=== PATIENT | female | born 1940 | race Caucasian/White ===

== ENCOUNTER 2018-11-30 15:19 | Inpatient (IN) ==
[2018-11-30] MEDS ORDERED: IOPAMIDOL 100 ML BOTTLE IV ONE (15:20)
--- NOTE | 2018-11-30 15:45 | Emergency Department Note ---
SOB HPI - General Chief Complaint: Shortness of Breath/Dyspnea Stated Complaint: shortness of breath, increased Co2 levels Time Seen by Provider: 11/30/18 15:25 Source: patient, other Mode of arrival: wheelchair Limitations: no limitations - History of Present Illness 78 old female with a several day history of shortness of breath now requiring 2 L of oxygen. [facility] status post hip replacement. Her daughter thinks that she may have some sleep apnea that is contributing. She just finished a course of Levaquin [address] Glez got a blood gas on her in the venous blood gas showed a pH of 67 so he was concerned and sent her to the ER. Her family is concerned about undiagnosed sleep apnea - Related Data Home Medications Medication Instructions Recorded Confirmed cholecalciferol (vitamin D3) 1,000 1,000 unit PO QDAY 06/29/18 11/30/18 unit capsule diltiazem HCl 120 mg 60 mg PO QDAY 06/29/18 11/30/18 capsule,extended release 24 hr duloxetine 20 mg capsule,delayed 60 mg PO QDAY cap 06/29/18 11/30/18 release fluticasone propionate 50 1 spray INTRANASAL ONCE PRN g 06/29/18 11/30/18 mcg/actuation nasal spray,suspension magnesium oxide 400 mg (241.3 mg 400 mg PO QDAY tab 06/29/18 11/30/18 magnesium) tablet mesalamine 0.75 gm PO QAM 06/29/18 11/30/18 metformin 500 mg tablet 500 mg PO BID 06/29/18 11/30/18 nitroglycerin 0.4 mg sublingual 0.4 mg SUBLINGUAL Q5-15M PRN 06/29/18 11/30/18 tablet simvastatin 10 mg tablet 10 mg PO QHS 06/29/18 11/30/18 warfarin 5 mg tablet 5 mg PO QDAY 06/29/18 06/29/18 Allopurinol [Zyloprim] 200 mg PO DAILY 11/30/18 11/30/18 Amiodarone HCl [Cordarone] 200 mg PO DAILY 11/30/18 11/30/18 Aspirin [Adult Aspirin Regimen] 81 mg PO DAILY 11/30/18 11/30/18 Bumetanide 2 mg PO DAILY 11/30/18 11/30/18 Cyanocobalamin (Vitamin B-12) 500 mcg PO DAILY 11/30/18 11/30/18 [Vitamin B-12] Ferrous Fumarate [Hemocyte] 324 mg PO DAILY 11/30/18 11/30/18 Fluticasone/Salmeterol [Advair 1 puff INH BID 11/30/18 11/30/18 250-50 Diskus] Folic Acid 1 mg PO DAILY 11/30/18 11/30/18 Ipratropium/Albuterol [Duoneb] 3 ml NEB Q6HP PRN 11/30/18 11/30/18 Iron Fum/Vit C/B12-If/FA [Tricon 1 each PO BID 11/30/18 11/30/18 Capsule] Levothyroxine [Synthroid] 50 mcg PO DAILY 11/30/18 11/30/18 Ondansetron [Zofran ODT] 4 mg SL ACHS 11/30/18 11/30/18 Polyethylene Glycol 3350 [Miralax] 17 gm PO DAILY 11/30/18 11/30/18 Potassium Chloride [Klor-Con] 20 meq PO DAILY 11/30/18 11/30/18 Ranitidine HCl [Zantac] 150 mg PO BID 11/30/18 11/30/18 Rivaroxaban [Xarelto] 20 mg PO DAILY 11/30/18 11/30/18 traMADol HCL [Ultram] 50 mg PO Q6HP PRN 11/30/18 11/30/18 Allergies Allergy/AdvReac Type Severity Reaction Status Date / Time No Known Intolerances Allergy Unknown Verified 11/30/18 15:22 Review of Systems All systems ED: reviewed and negative except as stated. Past Medical History - Past Medical History Attestation: Yes: The following information was validated with the patient. [facility] Narrative: Family History (Last Updated 06/29/18 @ 14:19 by Jessica Chan) Other No pertinent family history Medical History (Last Updated 06/29/18 @ 13:37 by Jessica Chan) Vitamin deficiency, unspecified (Chronic) Allergy (Chronic) Irritable bowel syndrome with constipation (Chronic) Atrial fibrillation (Chronic) Major depressive disorder, single episode, unspecified (Chronic) Hyperuricemia without signs of inflammatory arthritis and tophaceous disease (Chronic) Type 2 diabetes mellitus without complications (Chronic) Hyperlipidemia (Chronic) Weakness (Chronic 06/09/18) Pain (Chronic) Need for assistance with personal care (Chronic) Lymphedema (Chronic) Obesity (Chronic) Muscle weakness (generalized) (Chronic) Other pulmonary embolism without acute cor pulmonale (Chronic) Temporal arteritis (Chronic) Past Surgical History (Last Updated 06/29/18 @ 14:19 by Jessica Chan) No pertinent past surgical history (Chronic) Medical history: Reports: atrial fibrillation, CHF, DM, hyperlipidemia, hypothyroidism, pulmonary embolus, other (Lymphedema, gout, B12) Surgical history ED: Reports: hip replacement - Social History smoking status: Never smoker Physical Exam Cephalic atraumatic. Conjunctive are clear sclera white anicteric. No nasal discharge or congestion. Oropharynx with dry buccal mucosa. Neck is supple without lymphadenopathy thyromegaly. Heart is regular rate and rhythm on auscultation. Holosystolic murmur 2 out of 6. Lungs are clear to auscultation bilaterally without wheezes rales rhonchi or respiratory distress. Wearing nasal cannula oxygen 2 L. Abdomen is soft nontender nondistended. Bloating. She does have +1-2 pitting edema bilaterally past her knees. She is alert oriented able to answer questions but is not clear if she is got some short-term memory deficit as her daughter is having to correct her multiple times. [facility] er she is inappropriately unconcerned about her health situation-we typically see this in the situation of dementia, " good indiffrence". Limitations: no limitations Course Vital Signs Temperature 97.6 F 11/30/18 15:19 Pulse Rate 86 11/30/18 15:19 Respiratory Rate 20 11/30/18 15:19 Blood Pressure 128/70 11/30/18 15:19 Pulse Oximetry (%) 94 11/30/18 15:19 Temperature 97.6 F 11/30/18 15:19 Pulse Rate 85 11/30/18 17:15 Respiratory Rate 16 11/30/18 17:15 Blood Pressure 135/67 11/30/18 17:15 Pulse Oximetry (%) 97 11/30/18 17:15 Shortness of Breath/Dyspnea - Lab Data Lab results reviewed: Yes I reviewed the patient's lab results. Result diagrams: 11/30/18 15:30 10/24/19 15:30 Lab Results 11/30/18 11/30/18 11/30/18 Range/Units 15:30 15:30 15:30 WBC 11.4 H (4.5-11.0) K/mcL RBC 3.76 L (4.00-5.20) M/mcL Hgb 10.0 L (12.0-15.0) g/dL Hct 31.0 L (36.0-48.0) % MCV 82.5 (80.0-100.0) fL MCH 26.6 (26.0-34.0) pg MCHC 32.2 (31.0-36.0) g/dL RDW 16.2 H (11.5-14.5) % Plt Count 496 H (140-440) K/mcL MPV 6.6 L (7.4-10.4) fL Total Counted 100 Seg Neutrophils % 69 (38-78) % Band Neutrophils % Not Reportable Lymphocytes % 16 (15-49) % Monocytes % (Manual) 12 (1-12) % Eosinophils % (Manual) 2 (0-7) % Basophils % (Manual) 1 (0-2) % Platelet Estimate Increased (NORMAL) RBC Morphology Normal (NORMAL) VBG Lactic Acid (0.5-2.0) mmol/L Sodium 137 (133-145) mmol/L Potassium 3.6 (3.3-5.1) mmol/L Chloride 91 L (96-108) mmol/L Carbon Dioxide 33 H (22-30) mmol/L Anion Gap 13.0 (8-16) BUN 17 (8-23) mg/dl Creatinine 1.1 (0.6-1.1) mg/dl GFR Calculation 48 Glucose 147 H (70-105) mg/dL Calcium 9.3 (8.6-10.4) mg/dl Total Bilirubin 0.4 (0.0-1.0) mg/dL AST 23 (0-37) U/l ALT 17 (0-40) U/l Alkaline Phosphatase 122 H (39-117) U/L Total Creatine Kinase 56 58 (24-170) IU/L CK-MB (CK-2) 2.5 (0-2.9) ng/ml Myoglobin 57 (25-58) ng/ml Troponin T (0-0.03) ng/ml NT-Pro-B Natriuret Pep (0-450) pg/ml Total Protein 6.9 (5.9-8.4) gm/dL Albumin 3.4 (3.2-5.2) gm/dL Globulin 3.5 (2.2-3.7) gm/dL Albumin/Globulin Ratio 1.0 (1.0-2.3) Procalcitonin (<0.10) ng/mL Urine Color Urine Appearance Urine pH (5.0-9.0) Ur Specific [place] (1.000-1.035) Urine Protein (NEG) mg/dL Urine Glucose (UA) (NEG) mg/dL Urine Ketones (NEG) mg/dL Urine Occult Blood (<0.03) mg/dL Urine Nitrate (NEG) Urine Bilirubin (NEG) mg/dL Urine Urobilinogen (NEG) mg/dL Ur Leukocyte Esterase (NEG) /uL Urine RBC (0-1) /hpf Urine WBC (0-4) /hpf Ur Squamous Epith Cells (0-4) /hpf Urine Bacteria (0) /hpf Hyaline Casts (0-2) /lpf Urine Mucus (0) /hpf Ur Culture Indicated? 11/30/18 11/30/18 11/30/18 Range/Units 15:30 16:17 16:17 WBC (4.5-11.0) K/mcL RBC (4.00-5.20) M/mcL Hgb (12.0-15.0) g/dL Hct (36.0-48.0) % MCV (80.0-100.0) fL MCH (26.0-34.0) pg MCHC (31.0-36.0) g/dL RDW (11.5-14.5) % Plt Count (140-440) K/mcL MPV (7.4-10.4) fL Total Counted Seg Neutrophils % (38-78) % Band Neutrophils % Lymphocytes % (15-49) % Monocytes % (Manual) (1-12) % Eosinophils % (Manual) (0-7) % Basophils % (Manual) (0-2) % Platelet Estimate (NORMAL) RBC Morphology (NORMAL) VBG Lactic Acid 1.5 (0.5-2.0) mmol/L Sodium (133-145) mmol/L Potassium (3.3-5.1) mmol/L Chloride (96-108) mmol/L Carbon Dioxide (22-30) mmol/L Anion Gap (8-16) BUN (8-23) mg/dl Creatinine (0.6-1.1) mg/dl GFR Calculation Glucose (70-105) mg/dL Calcium (8.6-10.4) mg/dl Total Bilirubin (0.0-1.0) mg/dL AST (0-37) U/l ALT (0-40) U/l Alkaline Phosphatase (39-117) U/L Total Creatine Kinase (24-170) IU/L CK-MB (CK-2) (0-2.9) ng/ml Myoglobin (25-58) ng/ml Troponin T 0.02 (0-0.03) ng/ml NT-Pro-B Natriuret Pep (0-450) pg/ml Total Protein (5.9-8.4) gm/dL Albumin (3.2-5.2) gm/dL Globulin (2.2-3.7) gm/dL Albumin/Globulin Ratio (1.0-2.3) Procalcitonin < 0.05 (<0.10) ng/mL Urine Color Urine Appearance Urine pH (5.0-9.0) Ur Specific [place] (1.000-1.035) Urine Protein (NEG) mg/dL Urine Glucose (UA) (NEG) mg/dL Urine Ketones (NEG) mg/dL Urine Occult Blood (<0.03) mg/dL Urine Nitrate (NEG) Urine Bilirubin (NEG) mg/dL Urine Urobilinogen (NEG) mg/dL Ur Leukocyte Esterase (NEG) /uL Urine RBC (0-1) /hpf Urine WBC (0-4) /hpf Ur Squamous Epith Cells (0-4) /hpf Urine Bacteria (0) /hpf Hyaline Casts (0-2) /lpf Urine Mucus (0) /hpf Ur Culture Indicated? 11/30/18 11/30/18 Range/Units 16:17 16:35 WBC (4.5-11.0) K/mcL RBC (4.00-5.20) M/mcL Hgb (12.0-15.0) g/dL Hct (36.0-48.0) % MCV (80.0-100.0) fL MCH (26.0-34.0) pg MCHC (31.0-36.0) g/dL RDW (11.5-14.5) % Plt Count (140-440) K/mcL MPV (7.4-10.4) fL Total Counted Seg Neutrophils % (38-78) % Band Neutrophils % Lymphocytes % (15-49) % Monocytes % (Manual) (1-12) % Eosinophils % (Manual) (0-7) % Basophils % (Manual) (0-2) % Platelet Estimate (NORMAL) RBC Morphology (NORMAL) VBG Lactic Acid (0.5-2.0) mmol/L Sodium (133-145) mmol/L Potassium (3.3-5.1) mmol/L Chloride (96-108) mmol/L Carbon Dioxide (22-30) mmol/L Anion Gap (8-16) BUN (8-23) mg/dl Creatinine (0.6-1.1) mg/dl GFR Calculation Glucose (70-105) mg/dL Calcium (8.6-10.4) mg/dl Total Bilirubin (0.0-1.0) mg/dL AST (0-37) U/l ALT (0-40) U/l Alkaline Phosphatase (39-117) U/L Total Creatine Kinase (24-170) IU/L CK-MB (CK-2) (0-2.9) ng/ml Myoglobin (25-58) ng/ml Troponin T (0-0.03) ng/ml NT-Pro-B Natriuret Pep 1914.0 H (0-450) pg/ml Total Protein (5.9-8.4) gm/dL Albumin (3.2-5.2) gm/dL Globulin (2.2-3.7) gm/dL Albumin/Globulin Ratio (1.0-2.3) Procalcitonin (<0.10) ng/mL Urine Color Yellow Urine Appearance Clear Urine pH 6.0 (5.0-9.0) Ur Specific [place] 1.012 (1.000-1.035) Urine Protein Neg (NEG) mg/dL Urine Glucose (UA) Negative (NEG) mg/dL Urine Ketones Neg (NEG) mg/dL Urine Occult Blood Neg (<0.03) mg/dL Urine Nitrate Neg (NEG) Urine Bilirubin Neg (NEG) mg/dL Urine Urobilinogen Neg (NEG) mg/dL Ur Leukocyte Esterase 75 A (NEG) /uL Urine RBC 0 (0-1) /hpf Urine WBC 28 H (0-4) /hpf Ur Squamous Epith Cells 1 (0-4) /hpf Urine Bacteria 0 (0) /hpf Hyaline Casts 34 H (0-2) /lpf Urine Mucus Few (0) /hpf Ur Culture Indicated? Yes Arterial blood gases a pH of 7.47 PCO2 49 PO2 of 57 - Radiology Data Radiology results reviewed: Yes I reviewed the patient's radiology results. Chest x-ray shows significant bibasilar pneumonia versus CHF, right worse than left - EKG Data EKG attestation: Yes I reviewed and interpreted this EKG., Yes There are no EKG findings of acute coronary syndrome, Yes This EKG will be read by sample shoe inspector and reworker EKG results narrative: EKG shows a rate of 85 sinus rhythm first-degree AV block incomplete right bundle branch block Disposition Pt seen by CERTIFIED SKI PATROLLER/PA only: No Clinical Impression: Pleural effusion Congestive heart failure Qualifiers: Heart failure type: unspecified Heart failure chronicity: acute on chronic Qualified Code(s): I50.9 - Heart failure, unspecified Respiratory failure with hypoxia and hypercapnia Qualifiers: Chronicity: acute Qualified Code(s): J96.01 - Acute respiratory failure with hypoxia; J96.02 - Acute respiratory failure with hypercapnia Summary: ABG shows significant hypoxia with mild hypercapnia. Chest x-ray shows bibasilar pneumonia Versus CHF. Blood cultures ordered and antibiotic started with Zosyn and vancomycin. Laboratory work-up start Laboratory consistent with CHF. Start Lasix [address] ordered [address] scan of the chest shows right-sided pleural effusion moderate to large-most consistent with CHF. Laboratory most consistent with CHF. Discussed with ho spitalist Dr. Kim who agreed to accept the patient for further care and evaluation in the ICU. Start BiPAP Disposition: Xfer As Inpt ([facility]) Condition: Fair Referrals: Wilfrid Carmona MD [Physician] -
[2018-11-30] MEDS ORDERED: PIPERACILLIN SODIUM/TAZOBACTAM 3.375 GM in DEXTROSE 5% IN WATER 50 ML IV ONE (15:55)
[2018-11-30] MEDS ORDERED: VANCOMYCIN 1,000 MG in 0.9 % SODIUM CHLORIDE 250 ML IV SCH (16:00)
--- NOTE | 2018-11-30 16:05 | XRay Report ---
INDICATION: Dyspnea TECHNIQUE: AP chest x-ray,portable semiupright COMPARISON: None FINDINGS:There is mild cardiomegaly. Pulmonary vascularity is prominent. There are bilateral parenchymal infiltrates with right basilar predominance. There are small effusions. Appearance is most consistent with congestive heart failure and pulmonary edema. Right basilar pneumonia is possible in the appropriate clinical circumstances. IMPRESSION: 1. Findings consistent with congestive heart failure and pulmonary edema 2. Right basilar infiltrate is probably pulmonary edema. Pneumonia is not excluded Interpreted and Authenticated by: Adal Maria 11/30/18
[2018-11-30 16:06] LABS: Mean Cell Volume 82.5 fL (80.0-100.0); Mean Corpuscular HGB Conc 32.2 g/dL (31.0-36.0); Mean Platelet Volume 6.6 fL (7.4-10.4); Platelet Count 496 K/mcL (140-440); RBC 3.76 M/mcL (4.00-5.20); Red Cell Distribution Width 16.2 % (11.5-14.5); WBC 11.4 K/mcL (4.5-11.0)
[2018-11-30 16:33] LABS: Basophils % (Manual) 1 % (0-2); Eosinophils % (Manual) 2 % (0-7); Lymphocytes % 16 % (15-49); Monocytes % (Manual) 12 % (1-12); Platelet Estimate INCREASED (NORMAL); RBC Morphology NORMAL (NORMAL); Segmented Neutrophils % 69 % (38-78)
[2018-11-30] MEDS ORDERED: FUROSEMIDE 100 MG/10 ML VIAL IV ONE (16:37)
[2018-11-30 16:40] LABS: ALT/SGPT 17 U/l (0-40); AST/SGOT 23 U/l (0-37); Albumin 3.4 gm/dL (3.2-5.2); Alkaline Phosphatase 122 U/L (39-117); Bilirubin,Total 0.4 mg/dL (0.0-1.0); Blood Urea Nitrogen 17 mg/dl (8-23); Calcium 9.3 mg/dl (8.6-10.4); Carbon Dioxide 33 mmol/L (22-30); Chloride 91 mmol/L (96-108); Creatine Kinase 56 IU/L (24-170); Creatine Kinase MB 2.5 ng/ml (0-2.9); Globulin 3.5 gm/dL (2.2-3.7); Glomerular Filtration Rate 48; Glucose 147 mg/dL (70-105); Myoglobin 57 ng/ml (25-58)
[2018-11-30 17:29] LABS: Appearance,Urine CLEAR; Bacteria,Urine 0 /hpf (0); Bilirubin,Urine NEG (NEG); Color,Urine YELLOW; Culture Indicated,Urine YES; Glucose,Urine (UA) NEGATIVE (NEG); Ketones,Urine NEG (NEG); Leukocyte Esterase,Urine 75 /uL (NEG); Mucus,Urine FEW /hpf (0); Nitrate,Urine NEG (NEG); Protein,Urine NEG (NEG); Specific Gravity,Urine 1.012 (1.000-1.035); Urine Blood NEG mg/dL (<0.03); Urine Hyaline Cast 34 /lpf (0-2); Urine RBC 0 /hpf (0-1); Urine Squamous Epithelial Cell 1 /hpf (0-4); Urine WBC 28 /hpf (0-4); Urobilinogen,Urine NEG (NEG)
--- NOTE | 2018-11-30 17:40 | Cat Scan Report ---
CLINICAL INFORMATION: Congestive heart failure. Dyspnea. TECHNIQUE: Axial postcontrast enhanced images through the chest. Sagittal and coronal reformatted images COMPARISON: Previous chest x-ray dated 11/30/2018 FINDINGS: Moderate right pleural effusion. Minimal left pleural effusion. Bilateral lower lobe infiltrate which is probably atelectasis. Pneumonia cannot be excluded based upon this appearance. Mid and upper lungs are negative. No parenchymal consolidation. Lungs are somewhat hazy bilaterally consistent with interstitial edema. There is four-chamber cardiomegaly. There is no pericardial fluid. Kiara and mediastinum are negative. No pathologic adenopathy. No axillary adenopathy. Thoracic aorta is negative. Upper abdomen is negative. Severe degenerative disc disease at C7-T1. Mild compression deformity of the T8 vertebral body. Appearance is consistent with benign compression fracture. IMPRESSION: 1. Moderate right pleural effusion. Probable interstitial edema consistent with congestive heart failure 2. Mild bilateral lower lobe pulmonary parenchymal density consistent with atelectasis 3. Cardiomegaly 4. T8 compression deformity, findings are consistent with benign compression fracture of indeterminate chronicity Interpreted and Authenticated by: Adal Maria 11/30/18
--- NOTE | 2018-11-30 18:28 | Internal Med History&Physical ---
Medical - H&P: HPI Patient information: Note initiated : 11/30/18 at 6:22 pm Service Date, if different from initiated Date: [] Patient: Dianne Benjamin a 78 y/o F admitted on for shortness of breath, increased Co2 levels. Chief Complaint: [] Chief complaint: SOB, weakness and hypoxic History of present illness: Ms. Benjamin is a 78 year old F with a complicated medical history including atrial flutter/pulmonary embolism currently on anticoagulation, COPD, CHF and diabetes. She follows up with [facility] office at [place]. She is in the process of transitioning to social secretary at [facility] to facilitate ablation for atrial flutter. She recently sustained hip fracture and underwent surgery at [place] by Dr. Severino. Patient was discharged to [facility] for postoperative recovery/rehab. She has been doing well until last few days she was noted by staff to be increasingly short of breath, weak and developed cough resulting in a gradual decline in functionality. She was recently diagnosed with pneumonia and completed a course of Levaquin 6 days ago. With above symptoms she was evaluated in the ER. Initial work-up was consistent with acute pulmonary edema/congestive heart failure on chest imaging. Urine showed pyuria. Patient was hypoxic requiring 2 L oxygen with blood gas 7.47/49/57. Patient was started on diuretics. Meraz's catheter placed with over 1200 cc urine output. Patient was initiated on noninvasive ventilation. Subsequently hospitalist service was consulted for admission in light of hypoxic respiratory failure UTI and deconditioning. She is accompanied with her daughter and son-in-law. They were able to answer most the question. Per daughter she has demonstrated a gradual cognitive decline over the last few months. During my evaluation patient is alert and respond to commands. She appears dyspneic and unable to talk in full sentences. She denies abdominal pain but endorses distention. She endorses to lower extremity swelling and weight gain. She denies chest pain headache fever or cough. She denies changes in medication or NSAID intake. She further denies known sick contacts. 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 inflammatory arthritis and tophaceous disease (Chronic) Type 2 diabetes mellitus without complications (Chronic) Hyperlipidemia (Chronic) Weakness (Chronic 06/09/18) Pain (Chronic) Need for assistance with personal care (Chronic) Lymphedema (Chronic) Obesity (Chronic) Muscle weakness (generalized) (Chronic) Other pulmonary embolism without acute cor pulmonale (Chronic) Temporal arteritis (Chronic) History of congestive heart failure Past Surgical History Reports: hip replacement October 24, 2018 - Social History smoking status: Never smoker No history of alcoholism Currently at [facility] recovering from recent hip surgery Medical - H&P: Meds Home Medications Medication Instructions Recorded Confirmed Type cholecalciferol (vitamin D3) 1,000 1,000 unit PO QDAY 06/29/18 11/30/18 History unit capsule diltiazem HCl 120 mg 60 mg PO QDAY 06/29/18 11/30/18 History capsule,extended release 24 hr duloxetine 20 mg capsule,delayed 60 mg PO QDAY cap 06/29/18 11/30/18 History release fluticasone propionate 50 1 spray INTRANASAL ONCE PRN g 06/29/18 11/30/18 History mcg/actuation nasal spray,suspension magnesium oxide 400 mg (241.3 mg 400 mg PO QDAY tab 06/29/18 11/30/18 History magnesium) tablet mesalamine 0.75 gm PO QAM 06/29/18 11/30/18 History metformin 500 mg tablet 500 mg PO BID 06/29/18 11/30/18 History nitroglycerin 0.4 mg sublingual 0.4 mg SUBLINGUAL Q5-15M PRN 06/29/18 11/30/18 History tablet simvastatin 10 mg tablet 10 mg PO QHS 06/29/18 11/30/18 History warfarin 5 mg tablet 5 mg PO QDAY 06/29/18 06/29/18 History Allopurinol [Zyloprim] 200 mg PO DAILY 11/30/18 11/30/18 History Amiodarone HCl [Cordarone] 200 mg PO DAILY 11/30/18 11/30/18 History Aspirin [Adult Aspirin Regimen] 81 mg PO DAILY 11/30/18 11/30/18 History Bumetanide 2 mg PO DAILY 11/30/18 11/30/18 History Cyanocobalamin (Vitamin B-12) 500 mcg PO DAILY 11/30/18 11/30/18 History [Vitamin B-12] Ferrous Fumarate [Hemocyte] 324 mg PO DAILY 11/30/18 11/30/18 History Fluticasone/Salmeterol [Advair 1 puff INH BID 11/30/18 11/30/18 History 250-50 Diskus] Folic Acid 1 mg PO DAILY 11/30/18 11/30/18 History Ipratropium/Albuterol [Duoneb] 3 ml NEB Q6HP PRN 11/30/18 11/30/18 History Iron Fum/Vit C/B12-If/FA [Tricon 1 each PO BID 11/30/18 11/30/18 History Capsule] Levothyroxine [Synthroid] 50 mcg PO DAILY 11/30/18 11/30/18 History Ondansetron [Zofran ODT] 4 mg SL ACHS 11/30/18 11/30/18 History Polyethylene Glycol 3350 [Miralax] 17 gm PO DAILY 11/30/18 11/30/18 History Potassium Chloride [Klor-Con] 20 meq PO DAILY 11/30/18 11/30/18 History Ranitidine HCl [Zantac] 150 mg PO BID 11/30/18 11/30/18 History Rivaroxaban [Xarelto] 20 mg PO DAILY 11/30/18 11/30/18 History traMADol HCL [Ultram] 50 mg PO Q6HP PRN 11/30/18 11/30/18 History Allergies Allergy/AdvReac Type Severity Reaction Status Date / Time No Known Intolerances Allergy Unknown Verified 11/30/18 15:22 Medical - H&P: Exam - Constitutional Vitals: Temp Pulse Resp BP Pulse Ox 97.6 F 85 16 135/67 97 11/30/18 15:19 11/30/18 17:15 11/30/18 17:15 11/30/18 17:15 11/30/18 17:15 Medical - H&P: Reslt - Labs CBC & Chem 7: 11/30/18 15:30 11/30/18 15:30 Labs: Short CBC 11/30/18 Range/Units 15:30 WBC 11.4 H (4.5-11.0) K/mcL Hgb 10.0 L (12.0-15.0) g/dL Hct 31.0 L (36.0-48.0) % Plt Count 496 H (140-440) K/mcL BMP 11/30/18 15:30 Sodium 137 Potassium 3.6 Chloride 91 L Carbon Dioxide 33 H BUN 17 Creatinine 1.1 Glucose 147 H Calcium 9.3 Cardiac Enzymes 11/30/18 11/30/18 11/30/18 Range/Units 15:30 15:30 15:30 Total Creatine Kinase 56 58 (24-170) IU/L CK-MB (CK-2) 2.5 (0-2.9) ng/ml Troponin T 0.02 (0-0.03) ng/ml Liver Function 11/30/18 Range/Units 15:30 Total Bilirubin 0.4 (0.0-1.0) mg/dL AST 23 (0-37) U/l ALT 17 (0-40) U/l Alkaline Phosphatase 122 H (39-117) U/L Albumin 3.4 (3.2-5.2) gm/dL Urine 11/30/18 Range/Units 16:35 Urine Color Yellow Urine Appearance Clear Urine pH 6.0 (5.0-9.0) Ur Specific [place] 1.012 (1.000-1.035) Urine Protein Neg (NEG) mg/dL Urine Glucose (UA) Negative (NEG) mg/dL Medical - H&P: A/P (1) Heart failure, chronic, with acute decompensation Current visit: Yes Status: Acute * Acute decompensated heart failure. As evident on chest imaging. Type unclear. Obtain prior medical records. Check echocardiogram. Start aggressive diuresis/optimize CHF management based on echo finding. Start noninvasive ventilation in light of increased work of breathing/severe hypoxia and pulmonary edema. * Acute pulmonary edema-second above. Continue aggressive diuresis/noninvasive ventilation. * Acute respiratory failure with hypoxia and hypercapnia. Secondary to pulmonary edema/CHF, ABG 7.47/40 9/57 on 2 L oxygen. Large AA gradient. Continue supplemental oxygen * Complicated UTI-on antibiotic coverage. De-escalate based on sensitivities * Pleural effusion secondary to congestive heart failure. Thoracentesis if no improvement despite diuresis in the next 24 to 48 hours. * History paroxysmal atrial fibrillation currently in sinus. On amiodarone/digoxin/rivaroxaban for CVA prophylaxis * History of COPD-continue bronchodilators/noninvasive ventilation/submental oxygen. * History of coronary disease continue aspirin/statin/anticoagulation/nitroglycerin * History of hypothyroidism continue thyroxine * DM type II continue basal prandial insulin/CC diet/sitagliptin * GERD continue H2 antagonist * Degenerative disease continue tramadol * History of gout continue allopurinol * Full code * Prophylaxis currently on anticoagulation Plan * Inpatient ICU admission * Noninvasive ventilation * Serial chest imaging/blood gas * Aggressive diuresis * Echocardiogram * Thoracentesis if no improvement with diuresis indicated * Antibiotic coverage and de-escalate based on cultures * Aggressive PT OT/nutrition support/case management rehab consult Time spent on history and physical in excess of 70 minutes. Additional 35 minutes critical time spent on management of hypoxic respite failure/pulmonary edema/imaging intubation of ABG/imaging discussion with physician
[2018-11-30] MEDS ORDERED: MAGNESIUM SULFATE 2 GM/50 ML BAG IV PRN (19:25)
[2018-11-30] MEDS ORDERED: NITROGLYCERIN 0.4 MG TAB.SUBL SL PRN (19:25)
[2018-11-30] MEDS ORDERED: ONDANSETRON 4 MG/2 ML VIAL IV PRN (19:25)
[2018-11-30] MEDS ORDERED: ACETAMINOPHEN 325 MG TABLET PO PRN (19:25)
[2018-11-30] MEDS ORDERED: ACETAMINOPHEN 650 MG/65 ML BOTTLE IV PRN (19:25)
[2018-11-30] MEDS ORDERED: DEXTROSE 31 GM ORAL.SUSP PO PRN (19:25)
[2018-11-30] MEDS ORDERED: DEXTROSE 50% 50 ML VIAL IV PRN (19:25)
[2018-11-30] MEDS ORDERED: POTASSIUM CHLORIDE 20 MEQ PACKET PO PRN (19:25)
[2018-11-30] MEDS ORDERED: hydrALAZINE 20 MG/ML VIAL IV PRN (19:25)
[2018-11-30] MEDS ORDERED: traMADol 50 MG TABLET PO PRN (19:25)
[2018-11-30] MEDS ORDERED: cefTRIAXone 2 GM VIAL ONE (20:57)
[2018-11-30] MEDS ORDERED: IRON FUM PO SCH (21:00)
[2018-11-30] MEDS ORDERED: VIT C PO SCH (21:00)
[2018-11-30] MEDS ORDERED: [UNRECOGNIZED DRUG - OTHER] PO SCH (21:00)
[2018-11-30] MEDS ORDERED: MELATONIN 3 MG TABLET PO PRN (21:00)
[2018-11-30] MEDS: BUDESONIDE 0.5 MG/2 ML AMPUL.NEB NEB SCH (21:09)
[2018-11-30] MEDS: SENNOSIDES/DOCUSATE SODIUM 1 TAB TABLET PO SCH (21:12)
[2018-11-30] MEDS: FAMOTIDINE 20 MG TABLET PO SCH (21:12)
[2018-11-30] MEDS: SIMVASTATIN 10 MG TABLET PO SCH (21:12)
[2018-11-30] MEDS: DOCUSATE SODIUM 100 MG CAPSULE PO SCH (21:12)
[2018-11-30] MEDS: CYANOCOBALAMIN (VITAMIN B-12) 500 MCG TABLET PO SCH (21:12)
[2018-11-30] MEDS: IPRATROPIUM/ALBUTEROL 3 ML AMPUL.NEB NEB SCH ×2 (21:12→21:43)
[2018-11-30] MEDS: METOPROLOL TARTRATE 5 MG/5 ML VIAL IV SCH ×3 (21:13→22:06)
[2018-11-30] MEDS: cefTRIAXone 2 GM in DEXTROSE 5% IN WATER 50 ML IV SCH (21:13)
[2018-11-30] MEDS ORDERED: FUROSEMIDE 40 MG/4 ML VIAL IV SCH (22:00)
[2018-11-30] MEDS: INSULIN LISPRO 1 UNIT/0.01 ML UNIT SQ SCH (22:24)
[2018-12-01] MEDS: 0.9 % SODIUM CHLORIDE 10 ML SYRINGE IV SCH ×4 (03:29→21:41)
[2018-12-01] MEDS: IPRATROPIUM/ALBUTEROL 3 ML AMPUL.NEB NEB SCH ×6 (03:30→22:54)
[2018-12-01 05:32] LABS: Hemoglobin 9.1 g/dL (12.0-15.0); Mean Cell Volume 82.8 fL (80.0-100.0); Mean Corpuscular HGB Conc 32.6 g/dL (31.0-36.0); Mean Platelet Volume 6.8 fL (7.4-10.4); Platelet Count 411 K/mcL (140-440); RBC 3.38 M/mcL (4.00-5.20); Red Cell Distribution Width 15.7 % (11.5-14.5); WBC 8.9 K/mcL (4.5-11.0)
--- NOTE | 2018-12-01 05:47 | Internal Med Progress Note ---
Medical - PN: Subj Patient information: Note initiated : 12/01/18 at 5:45 am Service Date, if different from initiated Date: [] Patient: Dianne Benjamin a 78 y/o F admitted on 11/30/18 for shortness of breath, increased Co2 levels. Chief Complaint: [] Interval history: Ms. Benjamin is a 78 year old F with a complicated medical history including atrial flutter/pulmonary embolism currently on anticoagulation, COPD, CHF and diabetes. She follows up with [facility] office at [place]. 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 She recently sustained hip fracture and underwent surgery at [facility] by Dr. Severino. Patient was discharged to [facility] for postoperative recovery/rehab. She has been doing well until last few days she was noted by staff to be increasingly short of breath, weak and developed cough resulting in a gradual decline in functionality. She was recently diagnosed with pneumonia and completed a course of Levaquin 6 days ago. With above symptoms she was evaluated in the ER. Initial work-up was consistent with acute pulmonary edema/congestive heart failure on chest imaging. Urine showed pyuria. Patient was hypoxic requiring 2 L oxygen with blood gas 7.47/49/57. Patient was started on diuretics. Meraz's catheter placed with over 1200 cc urine output. Patient was initiated on noninvasive ventilation. Subsequently hospitalist service was consulted for admission in light of hypoxic respiratory failure UTI and deconditioning. She is accompanied with her daughter and son-in-law. They were able to answer most the question. Per daughter she has demonstrated a gradual cognitive decline over the last few months. During my evaluation patient is alert and respond to commands. She appears dyspneic and unable to talk in full sentences. She denies abdominal pain but endorses distention. She endorses to lower extremity swelling and weight gain. She denies chest pain headache fever or cough. She denies changes in medication or NSAID intake. She further denies known sick contacts. 12/01-patient kept overnight on noninvasive ventilation. Repeat ABG 7.5 on 30% FiO2. Diuresing well with over 3000 cc net negative. Improved pulmonary edema/hypoxia with PO2 improving from 57-93. Persistent hypercapnia likely CO2 retainer with Woodruff corrected PCO2 ~56. Check interval x-ray. Hemoglobin down to 9.1. White count down to 8.9. Potassium down to 2.9. Echocardiogram pending. No overnight telemetry events. Continue current treatment as above. - Constitutional Vitals: Vital Signs Temp Pulse Resp BP Pulse Ox 98.3 F 87 17 127/64 100 12/01/18 03:48 12/01/18 04:01 12/01/18 04:01 12/01/18 04:01 12/01/18 04:01 Period Temp Pulse Resp BP Sys/Seals Pulse Ox Last 24 Hr 97.6 F-98.8 F 52-89 12-99 100-151/59-88 84-100 Intake and Output 11/30/18 11/30/18 12/01/18 13:59 21:59 05:59 Intake Total 300 50 Output Total 2300 850 Balance -2000 -800 Weight 232 lb Patient Weight 12/01/18 05:59 Weight 232 lb Intake & Output: Intake & Output 11/30/18 11/30/18 12/01/18 13:59 21:59 05:59 Intake Total 300 50 Output Total 2300 850 Balance -2000 -800 Weight 232 lb Intake: IV 300 50 Zosyn 3.375 gm In Dextrose 5% 50 in Water 50 ml @ 100 mls/hr IV ONCE ONE Rx#:[id number] Vancomycin 1,000 mg In Sodium 250 Chloride 0.9% 250 ml @ 250 mls/ hr IV Q12H [facility] Rx#:[id number] Rocephin 2 gm In Dextrose 5% in 50 Water 50 ml @ 100 mls/hr IV DAILY [facility] Rx#:[id number] Output: Urine Catheter Amount 2300 850 Other: Urine Appearance Clear Cloudy Sediment Small Blood Clots Urine Color Pale Pale General appearance: no acute distress Exam: On noninvasive ventilation Meraz draining clear urine Improving lymphedema Diminished breath sounds bases but improved since previous day No telemetry events Medical - PN: Obj Da - Labs CBC & Chem 7: 12/01/18 03:13 12/01/18 03:13 Labs: Abnormal Lab Results 12/01/18 11/30/18 11/30/18 03:13 16:35 16:17 WBC RBC 3.38 L Hgb 9.1 L Hct 28.0 L RDW 15.7 H Plt Count MPV 6.8 L Chloride Carbon Dioxide Glucose Alkaline Phosphatase NT-Pro-B Natriuret Pep 1914.0 H Ur Leukocyte Esterase 75 A Urine WBC 28 H Hyaline Casts 34 H 11/30/18 11/30/18 15:30 15:30 WBC 11.4 H RBC 3.76 L Hgb 10.0 L Hct 31.0 L RDW 16.2 H Plt Count 496 H MPV 6.6 L Chloride 91 L Carbon Dioxide 33 H Glucose 147 H Alkaline Phosphatase 122 H NT-Pro-B Natriuret Pep Ur Leukocyte Esterase Urine WBC Hyaline Casts Meds: Medications Acetaminophen (Tylenol) 650 mg PO Q4-6HP PRN; Protocol PRN Reason: Per Pain Protocol/Fever > 101 Albuterol/Ipratropium (Duoneb) 3 ml NEB Q4HRT [facility] Last Admin: 12/01/18 03:30 Dose: 3 ml Documented by: Allopurinol (Zyloprim) 200 mg PO DAILY [facility] Amiodarone HCl (Cordarone) 200 mg PO DAILY [facility] Aspirin (Aspirin) 81 mg PO DAILY [facility] Budesonide (Pulmicort) 0.5 mg NEB Q12 [facility] Last Admin: 11/30/18 21:09 Dose: 0.5 mg Documented by: Cyanocobalamin (Vitamin B-12) 1,000 mcg PO BID [facility] Stop: 12/05/18 09:01 Last Admin: 11/30/18 21:12 Dose: 1,000 mcg Documented by: Dextrose (Dextrose 50%) 0 ml IV UD PRN PRN Reason: Hypoglycemia Diagnostic Test (Pha) (Accu-Chek) 1 each FS ACHS [facility] Last Admin: 11/30/18 21:12 Dose: 1 each Documented by: Diltiazem HCl (Cardizem Cd) 60 mg PO QDAY [facility] Docusate Sodium (Colace) 100 mg PO BID [facility] Last Admin: 11/30/18 21:12 Dose: 100 mg Documented by: Duloxetine HCl (Cymbalta) 60 mg PO DAILY [facility] Famotidine (Pepcid) 20 mg PO BID [facility] Last Admin: 11/30/18 21:12 Dose: 20 mg Documented by: Folic Acid (Folic Acid) 1 mg PO DAILY [facility] Furosemide (Lasix) 40 mg IV BIDD [facility] Glucose (Insta-Glucose) 15 gm PO PRN PRN PRN Reason: Hypoglycemia Hydralazine HCl (Apresoline) 10 mg IV Q4-6HP PRN PRN Reason: Hypertension Acetaminophen (Ofirmev) 650 mg in 65 mls @ 130 mls/hr IV Q6HP PRN; Protocol PRN Reason: Per Pain Protocol/Fever > 101 Magnesium Sulfate (Magnesium Sulfate) 2 gm in 50 mls @ 50 mls/hr IV UD PRN PRN Reason: MG = or < 1.7 Ceftriaxone Sodium 2 gm/ (Dextrose) 50 mls @ 100 mls/hr IV DAILY [facility]; Protocol Last Infusion: 12/01/18 03:27 Dose: Infused Documented by: Insulin Human Lispro (Humalog) 0 unit SQ ACHS [facility]; Protocol Last Admin: 11/30/18 22:24 Dose: Not Given Documented by: Iron Carb/Multivit/Practical Nursing Teacher/Folic Acid (Multivitamin W/Minerals) 1 tab PO DAILY [facility] Levothyroxine Sodium (Synthroid) 50 mcg PO ACB [facility] Magnesium Oxide (Magnesium Oxide) 400 mg PO QDAY [facility] Melatonin (Melatonin 3mg Tablet) 3 mg PO HSP PRN PRN Reason: Insomnia Nitroglycerin (Nitrostat) 0.4 mg SL Q5MINP PRN PRN Reason: Chest Pain Non-Formulary Medication (Ferrous Fumarate [Hemocyte]) 324 mg PO DAILY [facility] Non-Formulary Medication (Iron Fum/Vit C/B12-If/Fa [Tricon Capsule]) 1 each PO BID [facility] Last Admin: 11/30/18 22:25 Dose: Not Given Documented by: Non-Formulary Medication (Mesalamine) 0.75 gm PO QAM [facility] Ondansetron HCl (Zofran) 4 mg IV Q4-6HP PRN; Protocol PRN Reason: Nausea And Vomiting Potassium Chloride (Klor-Con) 40 meq PO DAILYP PRN PRN Reason: K+ < 3.5 Potassium Chloride (Klor-Con) 20 meq PO QAMCC [facility] Rivaroxaban (Xarelto) 20 mg PO QPMCC [facility] Senna/Docusate Sodium (Senna Plus Tablet) 1 tab PO HS [facility] Last Admin: 11/30/18 21:12 Dose: 1 tab Documented by: Simvastatin (Zocor) 10 mg PO QHS [facility] Last Admin: 11/30/18 21:12 Dose: 10 mg Documented by: Sitagliptin Phosphate (Januvia) 100 mg PO DAILY [facility] Sodium Chloride (Saline Flush) 10 ml IV Q8 [facility] Last Admin: 12/01/18 03:29 Dose: Not Given Documented by: Thiamine HCl (Vitamin B1) 100 mg PO DAILY [facility] Tramadol HCl (Ultram) 50 mg PO Q6HP PRN PRN Reason: Pain Medical - PN: A/P - Time Spent With Patient Total time spent is greater than 50% in coordination of care (as documented) at patient's floor/unit and/or counseling patient: Greater than 35 minutes (Critical care time) (1) Heart failure, chronic, with acute decompensation Status: Acute Assessment and plan: * Acute decompensated heart failure. Noted on chest imaging with pulmonary edema. Echo pending. clinically improving with aggressive diuresis. Continue noninvasive ventilation. Await outpatient records * Acute pulmonary edema-secondary to above. Clinically improving with aggressive diuresis. * Acute respiratory failure with hypoxia and hypercapnia. Secondary to pulmonary edema, repeat ABG 7.51/51/93 on 2 L oxygen. Improved AA gradient. * Complicated UTI-continue antibiotic coverage and de-escalate based on sensitivities * Hypokalemia 2.9. Start oral and IV replacement. * Pleural effusion secondary to congestive heart failure. Consider thoracente sis if no improvement despite diuresis in the next 24 to 48 hours. * History paroxysmal atrial fibrillation currently in sinus. On amiodarone/digoxin/rivaroxaban for CVA prophylaxis, follows up with [facility] at [place] * History of COPD with chronic CO2 retention, woodruff corrected PCO2 56. continue bronchodilators/noninvasive ventilation. * History of CAD continue aspirin/statin/anticoagulation/nitroglycerin. Follows up with [facility] * History of hypothyroidism continue thyroxine * DM type II continue basal prandial insulin/CC diet/sitagliptin * GERD continue H2 antagonist * Degenerative disease continue tramadol * History of gout continue allopurinol * Full code * Prophylaxis currently on rivaroxaban Plan * Wean noninvasive ventilation as tolerated * Continue serial chest imaging/blood gas * Obtain records from [facility] cardiology office, * Await echocardiogram, optimize CHF management based on echo findings * Continue aggressive diuresis * Replace 100 meq potassium(20 IV +80 p.o.) * Consider thoracentesis if no improvement with diuresis on repeat chest imaging * Antibiotic coverage and de-escalate based on cultures * Continue PT OT/nutrition support/case management rehab consult Current Visit: Yes
[2018-12-01 05:51] LABS: ALT/SGPT 13 U/l (0-40); AST/SGOT 20 U/l (0-37); Albumin 2.8 gm/dL (3.2-5.2); Albumin/Globulin Ratio 0.8 (1.0-2.3); Alkaline Phosphatase 101 U/L (39-117); Bilirubin,Direct < 0.2 mg/dL (0.0-0.3); Bilirubin,Total 0.4 mg/dL (0.0-1.0); Blood Urea Nitrogen 13 mg/dl (8-23); Carbon Dioxide 32 mmol/L (22-30); Chloride 92 mmol/L (96-108); Globulin 3.3 gm/dL (2.2-3.7); Glomerular Filtration Rate 62; Glucose 104 mg/dL (70-105); Lactate Dehydrogenase 196 U/L (94-250); Phosphorous 3.1 mg/dL (2.7-4.5); Triglycerides 54 mg/dl (<150); Uric Acid 3.8 mg/dL (2.5-8.0)
[2018-12-01] MEDS: POTASSIUM CHLORIDE 20 MEQ/15 ML ML PO SCH ×2 (06:12→12:13)
--- NOTE | 2018-12-01 06:45 | XRay Report ---
INDICATION: Hypoxia, dyspnea TECHNIQUE: AP chest x-ray,portable semiupright COMPARISON: Previous examination dated 11/30/2018 FINDINGS:Pulmonary vascularity remains prominent. Right basilar parenchymal infiltrate is essentially unchanged. There is pleural fluid, right greater than left. Overall appearance remains consistent with congestive heart failure although right basilar pneumonia is possible. Radiographic appearance is essentially unchanged IMPRESSION: No significant interval change since 11/30/2018 Interpreted and Authenticated by: Adal Maria 12/01/18
[2018-12-01 07:28] LABS: Band Neutrophils % 1 % (0-10); Eosinophils % (Manual) 1 % (0-7); Hypochromasia 1+ (NONE SEEN); Lymphocytes % 7 % (15-49); Monocytes % (Manual) 16 % (1-12); Platelet Estimate NORMAL (NORMAL); Polychromasia FEW (NONE SEEN); RBC Morphology ABNORM (NORMAL); Segmented Neutrophils % 75 % (38-78)
[2018-12-01] MEDS: BUDESONIDE 0.5 MG/2 ML AMPUL.NEB NEB SCH ×2 (07:35→19:13)
[2018-12-01] MEDS: INSULIN LISPRO 1 UNIT/0.01 ML UNIT SQ SCH ×4 (09:26→21:53)
[2018-12-01] MEDS: FUROSEMIDE 40 MG/4 ML VIAL IV SCH ×2 (09:45→16:50)
--- NOTE | 2018-12-01 10:38 | Internal Med Progress Note ---
Medical - PN: Subj Patient information: Note initiated : 12/01/18 at 10:37 am Service Date, if different from initiated Date: [] Patient: Dianne Benjamin a 78 y/o F admitted on 11/30/18 for shortness of breath, increased Co2 levels. Chief Complaint: [] Interval history: Ms. Benjamin is a 78 year old F with a complicated medical history including atrial flutter/pulmonary embolism currently on anticoagulation, COPD, CHF and diabetes. She follows up with [facility] at [place]. 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 She recently sustained hip fracture and underwent surgery at [facility] by Dr. Severino. Patient was discharged to [facility] for postoperative recovery/rehab. She has been doing well until last few days she was noted by staff to be increasingly short of breath, weak and developed cough resulting in a gradual decline in functionality. She was recently diagnosed with pneumonia and completed a course of Levaquin 6 days ago. With above symptoms she was evaluated in the ER. Initial work-up was consistent with acute pulmonary edema/congestive heart failure on chest imaging. Urine showed pyuria. Patient was hypoxic requiring 2 L oxygen with blood gas 7.47/49/57. Patient was started on diuretics. Meraz's catheter placed with over 1200 cc urine output. Patient was initiated on noninvasive ventilation. Subsequently hospitalist service was consulted for admission in light of hypoxic respiratory failure UTI and deconditioning. She is accompanied with her daughter and son-in-law. They were able to answer most the question. Per daughter she has demonstrated a gradual cognitive decline over the last few months. During my evaluation patient is alert and respond to commands. She appears dyspneic and unable to talk in full sentences. She denies abdominal pain but endorses distention. She endorses to lower extremity swelling and weight gain. She denies chest pain headache fever or cough. She denies changes in medication or NSAID intake. She further denies known sick contacts. 12/01-patient kept overnight on noninvasive ventilation. Repeat ABG 7.5 on 30% FiO2. Diuresing well with over 3000 cc net negative. Improved pulmonary edema/hypoxia with PO2 improving from 57-93. Persistent hypercapnia likely CO2 retainer with Woodruff corrected PCO2 ~56. Check interval x-ray. Hemoglobin down to 9.1. White count down to 8.9. Potassium down to 2.9. Echocardiogram pending. No overnight telemetry events. Continue current treatment as above. - Constitutional Vitals: Vital Signs Temp Pulse Resp BP Pulse Ox 98.1 F 88 23 H 122/65 97 12/01/18 08:01 12/01/18 08:01 12/01/18 10:01 12/01/18 10:01 12/01/18 10:01 Period Temp Pulse Resp BP Sys/Seals Pulse Ox Last 24 Hr 97.6 F-98.8 F 52-90 12-99 100-151/59-88 84-100 Intake and Output 11/30/18 12/01/18 12/01/18 21:59 05:59 13:59 Intake Total 300 50 Output Total 2300 850 Balance -2000 -800 Weight 105.233 kg Intake & Output: Intake & Output 11/30/18 12/01/18 12/01/18 21:59 05:59 13:59 Intake Total 300 50 Output Total 2300 850 Balance -2000 -800 Weight 105.233 kg Intake: IV 300 50 Zosyn 3.375 gm In Dextrose 5% 50 in Water 50 ml @ 100 mls/hr IV ONCE ONE Rx#:[id number] Vancomycin 1,000 mg In Sodium 250 Chloride 0.9% 250 ml @ 250 mls/ hr IV Q12H [facility] Rx#:[id number] Rocephin 2 gm In Dextrose 5% in 50 Water 50 ml @ 100 mls/hr IV DAILY [facility] Rx#:[id number] Output: Urine Catheter Amount 2300 850 Other: Urine Appearance Clear Cloudy Sediment Small Blood Clots Urine Color Pale Pale Exam: General: Alert, Awake, No acute Distress Eyes/N/T: EOMI, Head/Neck: neck supple, CV: RRR, No murmurs, Pulm: Abd: soft, nontender, +BS x4 Ext: no clubbing/cyanosis b/l LE edema Neuro: Alert, no focal deficits, moves all extremities, Skin: warm/dry Medical - PN: Obj Da - Labs CBC & Chem 7: 12/01/18 03:13 12/01/18 03:13 Labs: Abnormal Lab Results 12/01/18 12/01/18 11/30/18 03:13 03:13 16:35 WBC RBC 3.38 L Hgb 9.1 L Hct 28.0 L RDW 15.7 H Plt Count MPV 6.8 L Lymphocytes % 7 L Monocytes % (Manual) 16 H RBC Morphology Abnorm A Polychromasia Few A Hypochromasia 1+ A Potassium 2.9 L* Chloride 92 L Carbon Dioxide 32 H Glucose Alkaline Phosphatase NT-Pro-B Natriuret Pep Albumin 2.8 L Albumin/Globulin Ratio 0.8 L Ur Leukocyte Esterase 75 A Urine WBC 28 H Hyaline Casts 34 H 11/30/18 11/30/18 11/30/18 16:17 15:30 15:30 WBC 11.4 H RBC 3.76 L Hgb 10.0 L Hct 31.0 L RDW 16.2 H Plt Count 496 H MPV 6.6 L Lymphocytes % Monocytes % (Manual) RBC Morphology Polychromasia Hypochromasia Potassium Chloride 91 L Carbon Dioxide 33 H Glucose 147 H Alkaline Phosphatase 122 H NT-Pro-B Natriuret Pep 1914.0 H Albumin Albumin/Globulin Ratio Ur Leukocyte Esterase Urine WBC Hyaline Casts Meds: Medications Acetaminophen (Tylenol) 650 mg PO Q4-6HP PRN; Protocol PRN Reason: Per Pain Protocol/Fever > 101 Albuterol/Ipratropium (Duoneb) 3 ml NEB Q4HRT [facility] Last Admin: 12/01/18 06:51 Dose: 3 ml Documented by: Allopurinol (Zyloprim) 200 mg PO DAILY [facility] Amiodarone HCl (Cordarone) 200 mg PO DAILY [facility] Aspirin (Aspirin) 81 mg PO DAILY [facility] Budesonide (Pulmicort) 0.5 mg NEB Q12 [facility] Last Admin: 12/01/18 07:35 Dose: 0.5 mg Documented by: Cyanocobalamin (Vitamin B-12) 1,000 mcg PO BID [facility] Stop: 12/05/18 09:01 Last Admin: 11/30/18 21:12 Dose: 1,000 mcg Documented by: Dextrose (Dextrose 50%) 0 ml IV UD PRN PRN Reason: Hypoglycemia Diagnostic Test (Pha) (Accu-Chek) 1 each FS ACHS [facility] Last Admin: 12/01/18 09:25 Dose: 1 each Documented by: Docusate Sodium (Colace) 100 mg PO BID [facility] Last Admin: 11/30/18 21:12 Dose: 100 mg Documented by: Duloxetine HCl (Cymbalta) 60 mg PO DAILY [facility] Famotidine (Pepcid) 20 mg PO BID [facility] Last Admin: 11/30/18 21:12 Dose: 20 mg Documented by: Folic Acid (Folic Acid) 1 mg PO DAILY [facility] Furosemide (Lasix) 40 mg IV BIDD [facility] Last Admin: 12/01/18 09:45 Dose: 40 mg Documented by: Glucose (Insta-Glucose) 15 gm PO PRN PRN PRN Reason: Hypoglycemia Hydralazine HCl (Apresoline) 10 mg IV Q4-6HP PRN PRN Reason: Hypertension Acetaminophen (Ofirmev) 650 mg in 65 mls @ 130 mls/hr IV Q6HP PRN; Protocol PRN Reason: Per Pain Protocol/Fever > 101 Magnesium Sulfate (Magnesium Sulfate) 2 gm in 50 mls @ 50 mls/hr IV UD PRN PRN Reason: MG = or < 1.7 Ceftriaxone Sodium 2 gm/ (Dextrose) 50 mls @ 100 mls/hr IV DAILY [facility]; Protocol Last Infusion: 12/01/18 03:27 Dose: Infused Documented by: Insulin Human Lispro (Humalog) 0 unit SQ ACHS [facility]; Protocol Last Admin: 12/01/18 09:26 Dose: Not Given Documented by: Iron Carb/Multivit/[place]anson/Folic Acid (Multivitamin W/Minerals) 1 tab PO DAILY [facility] Levothyroxine Sodium (Synthroid) 50 mcg PO ACB [facility] Magnesium Oxide (Magnesium Oxide) 400 mg PO QDAY [facility] Melatonin (Melatonin 3mg Tablet) 3 mg PO HSP PRN PRN Reason: Insomnia Nitroglycerin (Nitrostat) 0.4 mg SL Q5MINP PRN PRN Reason: Chest Pain Ondansetron HCl (Zofran) 4 mg IV Q4-6HP PRN; Protocol PRN Reason: Nausea And Vomiting Diltiazem 60 Mg Cap. (Xl.24h) 1 dose PO DAILY [facility] Ferrous Fumarate [ Hemocyte] 324 Mg Tablet 1 dose PO DAILY [facility] Mesalamine 0.375 Gm Extended Release Capsules 1 dose PO DAILY [facility] Iron Fum/Vit C/B12- If/Fa [Tricon Capsule] 1 dose PO BID [facility] Pneumococcal Polyvalent Vaccine (Pneumovax 23) 0.5 ml IM .ONCE ONE Stop: 10/26/19 10:01 Potassium Chloride (Klor-Con) 40 meq PO DAILYP PRN PRN Reason: K+ < 3.5 Potassium Chloride (Klor-Con) 20 meq PO QAMCC [facility] Rivaroxaban (Xarelto) 20 mg PO QPMCC [facility] Senna/Docusate Sodium (Senna Plus Tablet) 1 tab PO HS [facility] Last Admin: 11/30/18 21:12 Dose: 1 tab Documented by: Simvastatin (Zocor) 10 mg PO QHS [facility] Last Admin: 11/30/18 21:12 Dose: 10 mg Documented by: Sitagliptin Phosphate (Januvia) 100 mg PO DAILY [facility] Sodium Chloride (Saline Flush) 10 ml IV Q8 [facility] Last Admin: 12/01/18 06:13 Dose: Not Given Documented by: Thiamine HCl (Vitamin B1) 100 mg PO DAILY [facility] Tramadol HCl (Ultram) 50 mg PO Q6HP PRN PRN Reason: Pain Medical - PN: A/P - Time Spent With Patient Total time spent is greater than 50% in coordination of care (as documented) at patient's floor/unit and/or counseling patient: - Narrative A/P Narrative: A: *Acute on chronic decompensated diastolic CHF w/Pulmonary edema: -clinically improving with aggressive diuresis *Acute pulmonary edema: 2/2 above. *Pleural effusion secondary to congestive heart failure. Consider thoracentesis if no improvement despite diuresis in the next 24 to 48 hours. *Acute respiratory failure with hypoxia/hypercapnia: 2/2 above -On noninvasive ventilation currently *Complicated UTI-continue antibiotic coverage and de-escalate based on sensitivities *Hypokalemia: *PAF: On amiodarone/diltiazem/rivaroxaban for CVA prophylaxis, follows up with [facility] at [place] *COPD ( ) w/chronic CO2 retention, woodruff corrected PCO2 56 *CAD: Follows up with [facility] *hypothyroidism continue thyroxine *DM II: *GERD *DJD: continue tramadol Plan -IV diuresis -echo pending -Wean noninvasive ventilation as tolerated -Obtain records from [facility] cardiology office. f/u outpt -Potassium placement -consider thoracentesis if no improvement with diuresis -Antibiotic coverage and de-escalate based on cultures -continue ASA/Statin/Nitroglycerin -cont Amio/Dilt -basal prandial insulin/CC diet/sitagliptin -Continue PT OT/nutrition support/case management rehab consult -ppx: rivaroxaban/cont home H2 full code
[2018-12-01] MEDS: MAGNESIUM OXIDE 400 MG TABLET PO SCH (10:51)
[2018-12-01] MEDS: sitaGLIPtin 100 MG TABLET PO SCH (10:51)
[2018-12-01] MEDS: MULTIVIT,THER IRON,CA,FA & MIN 1 TABLET PO SCH (10:51)
[2018-12-01] MEDS: DOCUSATE SODIUM 100 MG CAPSULE PO SCH ×2 (10:51→21:31)
[2018-12-01] MEDS: LEVOTHYROXINE 50 MCG TABLET PO SCH (10:51)
[2018-12-01] MEDS: POTASSIUM CHLORIDE 20 MEQ PACKET PO SCH (10:51)
[2018-12-01] MEDS: ALLOPURINOL 100 MG TABLET PO SCH (10:51)
[2018-12-01] MEDS: THIAMINE 100 MG TABLET PO SCH (10:52)
[2018-12-01] MEDS: FOLIC ACID 1 MG TABLET PO SCH (10:52)
[2018-12-01] MEDS: ASPIRIN 81 MG TAB.CHEW PO SCH (10:52)
[2018-12-01] MEDS: AMIODARONE HCL 200 MG TABLET PO SCH (10:52)
[2018-12-01] MEDS: CYANOCOBALAMIN (VITAMIN B-12) 500 MCG TABLET PO SCH ×2 (10:52→21:31)
[2018-12-01] MEDS: DULoxetine 30 MG CAPSULE PO SCH (10:52)
[2018-12-01] MEDS: FAMOTIDINE 20 MG TABLET PO SCH ×2 (10:52→21:31)
[2018-12-01] MEDS ORDERED: POTASSIUM CHLORIDE 20 MEQ/15 ML ML PO SCH ×2 (11:00→12:00)
[2018-12-01] MEDS: DILTIAZEM 60 MG PO SCH (11:20)
[2018-12-01] MEDS: FERROUS FUMARATE 324 MG PO SCH (11:20)
[2018-12-01] MEDS: FERROUS FUMARATE PO SCH ×2 (11:21→21:41)
[2018-12-01] MEDS: ASCORBIC ACID PO SCH ×2 (11:21→21:41)
[2018-12-01] MEDS: CYANOCOBALAMIN PO SCH ×2 (11:21→21:41)
[2018-12-01] MEDS: INTRINSIC FACTOR PO SCH ×2 (11:21→21:41)
[2018-12-01] MEDS: MESALAMINE 0.375 GM PO SCH (11:21)
[2018-12-01] MEDS: FOLIC ACID PO SCH ×2 (11:21→21:41)
[2018-12-01] MEDS: cefTRIAXone 2 GM in DEXTROSE 5% IN WATER 50 ML IV SCH (13:21)
[2018-12-01] MEDS ORDERED: POTASSIUM CHLORIDE 40 MEQ in DEXTROSE 5% IN WATER 500 ML IV ONE (14:00)
[2018-12-01] MEDS: RIVAROXABAN 20 MG TABLET PO SCH (16:21)
[2018-12-01] MEDS ORDERED: POTASSIUM CHLORIDE 20 MEQ in DEXTROSE 5% IN WATER 250 ML IV ONE (18:00)
[2018-12-01] MEDS: SENNOSIDES/DOCUSATE SODIUM 1 TAB TABLET PO SCH (21:31)
[2018-12-01] MEDS: SIMVASTATIN 10 MG TABLET PO SCH (21:31)
[2018-12-02] MEDS: IPRATROPIUM/ALBUTEROL 3 ML AMPUL.NEB NEB SCH ×6 (03:24→22:36)
[2018-12-02] MEDS: 0.9 % SODIUM CHLORIDE 10 ML SYRINGE IV SCH ×4 (03:26→20:29)
[2018-12-02 05:57] LABS: Hematocrit 30.4 % (36.0-48.0); Hemoglobin 9.8 g/dL (12.0-15.0); Mean Cell Volume 83.4 fL (80.0-100.0); Mean Corpuscular HGB Conc 32.1 g/dL (31.0-36.0); Mean Platelet Volume 6.7 fL (7.4-10.4); Platelet Count 432 K/mcL (140-440); RBC 3.65 M/mcL (4.00-5.20); Red Cell Distribution Width 15.8 % (11.5-14.5)
[2018-12-02 06:01] LABS: ALT/SGPT 14 U/l (0-40); AST/SGOT 26 U/l (0-37); Albumin 2.8 gm/dL (3.2-5.2); Albumin/Globulin Ratio 0.8 (1.0-2.3); Alkaline Phosphatase 105 U/L (39-117); Bilirubin,Direct < 0.2 mg/dL (0.0-0.3); Bilirubin,Total 0.4 mg/dL (0.0-1.0); Blood Urea Nitrogen 9 mg/dl (8-23); Calcium 9.2 mg/dl (8.6-10.4); Carbon Dioxide 35 mmol/L (22-30); Chloride 93 mmol/L (96-108); Globulin 3.5 gm/dL (2.2-3.7); Glomerular Filtration Rate 84; Glucose 95 mg/dL (70-105); Lactate Dehydrogenase 243 U/L (94-250); Phosphorous 2.7 mg/dL (2.7-4.5); Triglycerides 60 mg/dl (<150); Uric Acid 3.4 mg/dL (2.5-8.0)
[2018-12-02] MEDS: FUROSEMIDE 40 MG/4 ML VIAL IV SCH ×2 (07:32→16:09)
[2018-12-02] MEDS: LEVOTHYROXINE 50 MCG TABLET PO SCH (07:33)
[2018-12-02] MEDS: INSULIN LISPRO 1 UNIT/0.01 ML UNIT SQ SCH ×4 (07:42→20:28)
[2018-12-02] MEDS: POTASSIUM CHLORIDE 20 MEQ PACKET PO SCH (07:42)
[2018-12-02 07:53] LABS: Band Neutrophils % 2 % (0-10); Basophils % (Manual) 1 % (0-2); Eosinophils % (Manual) 5 % (0-7); Hypochromasia 1+ (NONE SEEN); Lymphocytes % 7 % (15-49); Monocytes % (Manual) 13 % (1-12); Ovalocytes FEW (NONE SEEN); Platelet Estimate NORMAL (NORMAL); Poikilocytosis FEW (NONE SEEN); RBC Morphology ABNORM (NORMAL); Reactive Lymphocytes 1 % (0-2); Segmented Neutrophils % 71 % (38-78); Spherocytes OCC (NONE SEEN)
--- NOTE | 2018-12-02 08:22 | Internal Med Progress Note ---
Medical - PN: Subj Patient information: Note initiated : 12/02/18 at 8:14 am Service Date, if different from initiated Date: [] Patient: Dianne Benjamin a 78 y/o F admitted on 11/30/18 for shortness of breath, increased Co2 levels. Chief Complaint: [] Interval history: Ms. Benjamin is a 78 year old F with a complicated medical history including atrial flutter/pulmonary embolism currently on anticoagulation, COPD, CHF and diabetes. She follows up with [facility] at [place]. She is in the process of transitioning to [facility] at [place] to facilitate ablation for atrial flutter. She recently sustained hip fracture and underwent surgery at [facility] by Dr. Severino. [facility]. She has been doing well until last few days she was noted by staff to be increasingly short of breath, weak and developed cough resulting in a gradual decline in functionality. She was recently diagnosed with pneumonia and completed a course of Levaquin 6 days ago. With above symptoms she was evaluated in the ER. Initial work-up was consistent with acute pulmonary edema/congestive heart failure on chest imaging. Urine showed pyuria. Patient was hypoxic requiring 2 L oxygen with blood gas 7.47/49/57. Patient was started on diuretics. Meraz's catheter placed with over 1200 cc urine output. Patient was initiated on noninvasive ventilation. Subsequently hospitalist service was consulted for admission in light of hypoxic respiratory failure UTI and deconditioning. She is accompanied with her daughter and son-in-law. They were able to answer most the question. Per daughter she has demonstrated a gradual cognitive decline over the last few months. During my evaluation patient is alert and respond to commands. She appears dyspneic and unable to talk in full sentences. She denies abdominal pain but endorses distention. She endorses to lower extremity swelling and weight gain. She denies chest pain headache fever or cough. She denies changes in medication or NSAID intake. She further denies known sick contacts. 12/01-patient kept overnight on noninvasive ventilation. Repeat ABG 7.5 on 30% FiO2. Diuresing well with over 3000 cc net negative. Improved pulmonary edema/hypoxia with PO2 improving from 57-93. Persistent hypercapnia likely CO2 retainer with Woodruff corrected PCO2 ~56. Check interval x-ray. Hemoglobin down to 9.1. White count down to 8.9. Potassium down to 2.9. Echocardiogram pending. No overnight telemetry events. Continue current treatment as above. 12/02 Doing much better. On nasal cannula. Denies dyspnea. Denies cough. Good urine output. Edema in legs much better. Review of Systems: denies headache/fever/chills/nausea/vomiting/chest or abdominal pain/diarrhea. Otherwise see above. - Constitutional Vitals: Vital Signs Temp Pulse Resp BP Pulse Ox 97.1 F 93 H 16 119/69 98 12/02/18 04:01 12/02/18 07:39 12/02/18 07:39 12/02/18 07:01 12/02/18 07:08 Period Temp Pulse Resp BP Sys/Seals Pulse Ox Last 24 Hr 97.1 F-98.9 F 90-93 11-23 93-142/56-77 91-100 Intake and Output 12/01/18 12/02/18 12/02/18 21:59 05:59 13:59 Intake Total 520 850 Output Total 1300 325 Balance -780 525 Weight 105.233 kg 98.792 kg Intake & Output: Intake & Output 12/01/18 12/02/18 12/02/18 21:59 05:59 13:59 Intake Total 520 850 Output Total 1300 325 Balance -780 525 Weight 105.233 kg 98.792 kg Intake: IV 520 260 Potassium Chloride 20 Meq In 260 Dextrose 5% in Water 250 ml @ 130 mls/hr IV ONCE ONE Rx#: [id number] Potassium Chloride 40 Meq In 520 Dextrose 5% in Water 500 ml @ 130 mls/hr IV ONCE ONE Rx#: [id number] Oral 590 Output: Urine Catheter Amount 1300 250 Void Amount 75 Other: Urine Appearance Clear Clear Uretheral (Meraz) Clear Clear Urine Color Pale Dark Yellow Uretheral (Meraz) Pale Dark Yellow Urine Odor Normal Uretheral (Meraz) Normal Exam: General: Alert, Awake, No acute Distress Eyes/N/T: EOMI, Head/Neck: neck supple, CV: RRR, No murmurs, Pulm: bibase rales, no wheezing Abd: soft, nontender, +BS x4 Ext: no clubbing/cyanosis, 1-2+ b/l LE edema Neuro: Alert, no focal deficits, moves all extremities, Skin: warm/dry Medical - PN: Obj Da - Labs CBC & Chem 7: 12/02/18 04:16 12/02/18 04:16 Labs: Abnormal Lab Results 12/02/18 12/02/18 12/01/18 04:16 04:16 03:13 WBC RBC 3.65 L Hgb 9.8 L Hct 30.4 L RDW 15.8 H Plt Count MPV 6.7 L Lymphocytes % 7 L Monocytes % (Manual) 13 H RBC Morphology Abnorm A Polychromasia Hypochromasia 1+ A Poikilocytosis Few A Spherocytes Occ A Ovalocytes Few A Potassium 2.9 L* Chloride 93 L 92 L Carbon Dioxide 35 H 32 H Glucose Alkaline Phosphatase NT-Pro-B Natriuret Pep Albumin 2.8 L 2.8 L Albumin/Globulin Ratio 0.8 L 0.8 L Ur Leukocyte Esterase Urine WBC Hyaline Casts 12/01/18 11/30/18 11/30/18 03:13 16:35 16:17 WBC RBC 3.38 L Hgb 9.1 L Hct 28.0 L RDW 15.7 H Plt Count MPV 6.8 L Lymphocytes % 7 L Monocytes % (Manual) 16 H RBC Morphology Abnorm A Polychromasia Few A Hypochromasia 1+ A Poikilocytosis Spherocytes Ovalocytes Potassium Chloride Carbon Dioxide Glucose Alkaline Phosphatase NT-Pro-B Natriuret Pep 1914.0 H Albumin Albumin/Globulin Ratio Ur Leukocyte Esterase 75 A Urine WBC 28 H Hyaline Casts 34 H 11/30/18 11/30/18 15:30 15:30 WBC 11.4 H RBC 3.76 L Hgb 10.0 L Hct 31.0 L RDW 16.2 H Plt Count 496 H MPV 6.6 L Lymphocytes % Monocytes % (Manual) RBC Morphology Polychromasia Hypochromasia Poikilocytosis Spherocytes Ovalocytes Potassium Chloride 91 L Carbon Dioxide 33 H Glucose 147 H Alkaline Phosphatase 122 H NT-Pro-B Natriuret Pep Albumin Albumin/Globulin Ratio Ur Leukocyte Esterase Urine WBC Hyaline Casts Meds: Medications Acetaminophen (Tylenol) 650 mg PO Q4-6HP PRN; Protocol PRN Reason: Per Pain Protocol/Fever > 101 Albuterol/Ipratropium (Duoneb) 3 ml NEB Q4HRT CHRISSY Last Admin: 12/02/18 07:20 Dose: 3 ml Documented by: Allopurinol (Zyloprim) 200 mg PO DAILY [facility] Last Admin: 12/01/18 10:51 Dose: 200 mg Documented by: Amiodarone HCl (Cordarone) 200 mg PO DAILY [facility] Last Admin: 12/01/18 10:52 Dose: 200 mg Documented by: Aspirin (Aspirin) 81 mg PO DAILY [facility] Last Admin: 12/01/18 10:52 Dose: 81 mg Documented by: Budesonide (Pulmicort) 0.5 mg NEB Q12 [facility] Last Admin: 12/01/18 19:13 Dose: 0.5 mg Documented by: Cyanocobalamin (Vitamin B-12) 1,000 mcg PO BID [facility] Stop: 12/05/18 09:01 Last Admin: 12/01/18 21:31 Dose: 1,000 mcg Documented by: Dextrose (Dextrose 50%) 0 ml IV UD PRN PRN Reason: Hypoglycemia Diagnostic Test (Pha) (Accu-Chek) 1 each FS ACHS [facility] Last Admin: 12/02/18 07:35 Dose: 1 each Documented by: Docusate Sodium (Colace) 100 mg PO BID [facility] Last Admin: 12/01/18 21:31 Dose: 100 mg Documented by: Duloxetine HCl (Cymbalta) 60 mg PO DAILY [facility] Last Admin: 12/01/18 10:52 Dose: 60 mg Documented by: Famotidine (Pepcid) 20 mg PO BID [facility] Last Admin: 12/01/18 21:31 Dose: 20 mg Documented by: Folic Acid (Folic Acid) 1 mg PO DAILY [facility] Last Admin: 12/01/18 10:52 Dose: 1 mg Documented by: Furosemide (Lasix) 40 mg IV BIDD [facility] Last Admin: 12/02/18 07:32 Dose: 40 mg Documented by: Glucose (Insta-Glucose) 15 gm PO PRN PRN PRN Reason: Hypoglycemia Hydralazine HCl (Apresoline) 10 mg IV Q4-6HP PRN PRN Reason: Hypertension Acetaminophen (Ofirmev) 650 mg in 65 mls @ 130 mls/hr IV Q6HP PRN; Protocol PRN Reason: Per Pain Protocol/Fever > 101 Magnesium Sulfate (Magnesium Sulfate) 2 gm in 50 mls @ 50 mls/hr IV UD PRN PRN Reason: MG = or < 1.7 Last Infusion: 12/01/18 13:51 Dose: 0 mls/hr Documented by: Ceftriaxone Sodium 2 gm/ (Dextrose) 50 mls @ 100 mls/hr IV DAILY [facility]; Protocol Last Infusion: 12/01/18 13:51 Dose: Infused Documented by: Insulin Human Lispro (Humalog) 0 unit SQ ACHS [facility]; Protocol Last Admin: 12/02/18 07:42 Dose: Not Given Documented by: Iron Carb/Multivit/Auto Body Repair Estimator/Folic Acid (Multivitamin W/Minerals) 1 tab PO DAILY [facility] Last Admin: 12/01/18 10:51 Dose: 1 tab Documented by: Levothyroxine Sodium (Synthroid) 50 mcg PO ACB [facility] Last Admin: 12/02/18 07:33 Dose: 50 mcg Documented by: Magnesium Oxide (Magnesium Oxide) 400 mg PO QDAY [facility] Last Admin: 12/01/18 10:51 Dose: 400 mg Documented by: Melatonin (Melatonin 3mg Tablet) 3 mg PO HSP PRN PRN Reason: Insomnia Nitroglycerin (Nitrostat) 0.4 mg SL Q5MINP PRN PRN Reason: Chest Pain Ondansetron HCl (Zofran) 4 mg IV Q4-6HP PRN; Protocol PRN Reason: Nausea And Vomiting Diltiazem 60 Mg Cap. (Xl.24h) 1 dose PO DAILY [facility] Last Admin: 12/01/18 11:20 Dose: Not Given Documented by: Ferrous Fumarate [ Hemocyte] 324 Mg Tablet 1 dose PO DAILY [facility] Last Admin: 12/01/18 11:20 Dose: Not Given Documented by: Mesalamine 0.375 Gm Extended Release Capsules 1 dose PO DAILY [facility] Last Admin: 12/01/18 11:21 Dose: Not Given Documented by: Iron Fum/Vit C/B12- If/Fa [Tricon Capsule] 1 dose PO BID [facility] Last Admin: 12/01/18 21:41 Dose: Not Given Documented by: Pneumococcal Polyvalent Vaccine (Pneumovax 23) 0.5 ml IM .ONCE ONE Stop: 12/02/18 10:01 Potassium Chloride (Klor-Con) 40 meq PO DAILYP PRN PRN Reason: K+ < 3.5 Potassium Chloride (Klor-Con) 20 meq PO QAMCC [facility] Last Admin: 12/02/18 07:42 Dose: 20 meq Documented by: Rivaroxaban (Xarelto) 20 mg PO QPMCC [facility] Last Admin: 12/01/18 16:21 Dose: Not Given Documented by: Senna/Docusate Sodium (Senna Plus Tablet) 1 tab PO HS [facility] Last Admin: 12/01/18 21:31 Dose: 1 tab Documented by: Simvastatin (Zocor) 10 mg PO QHS [facility] Last Admin: 12/01/18 21:31 Dose: 10 mg Documented by: Sitagliptin Phosphate (Januvia) 100 mg PO DAILY [facility] Last Admin: 12/01/18 10:51 Dose: 100 mg Documented by: Sodium Chloride (Saline Flush) 10 ml IV Q8 [facility] Last Admin: 12/02/18 04:42 Dose: Not Given Documented by: Thiamine HCl (Vitamin B1) 100 mg PO DAILY [facility] Last Admin: 12/01/18 10:52 Dose: 100 mg Documented by: Tramadol HCl (Ultram) 50 mg PO Q6HP PRN PRN Reason: Pain Last Admin: 12/01/18 10:55 Dose: 50 mg Documented by: Medical - PN: A/P - Time Spent With Patient Total time spent is greater than 50% in coordination of care (as documented) at patient's floor/unit and/or counseling patient: - Narrative A/P Narrative: A: *Acute on chronic decompensated diastolic CHF w/Pulmonary edema: bumex recently decreased to once daily and then had hip fracture with repair and recently diagnosed with pneumonia, will increase bumex back to twice daily for now and f/u with PCP/Cardio -clinically improving with aggressive diuresis -echo with good EF, b/l mod atrial dilation, pulm HTN *Acute pulmonary edema: 2/2 above, *Pleural effusion secondary to congestive heart failure. Consider thoracentesis if no improvement despite diuresis in the next 24 to 48 hours. 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 f/u outpt with Dr. Kurtz in [place] -Potassium placement -consider thoracentesis if no improvement with diuresis -Antibiotic coverage and de-escalate based on cultures -continue ASA/Statin/Nitroglycerin -cont Amio/Dilt -basal prandial insulin/CC diet/sitagliptin -Continue PT OT/nutrition support/case management rehab consult -recommend sleep study -ppx: rivaroxaban/cont home H2 full code
[2018-12-02] MEDS: AMIODARONE HCL 200 MG TABLET PO SCH (09:12)
[2018-12-02] MEDS: DOCUSATE SODIUM 100 MG CAPSULE PO SCH ×2 (09:12→20:28)
[2018-12-02] MEDS: sitaGLIPtin 100 MG TABLET PO SCH (09:12)
[2018-12-02] MEDS: cefTRIAXone 2 GM in DEXTROSE 5% IN WATER 50 ML IV SCH (09:12)
[2018-12-02] MEDS: CYANOCOBALAMIN (VITAMIN B-12) 500 MCG TABLET PO SCH ×2 (09:12→20:29)
[2018-12-02] MEDS: DULoxetine 30 MG CAPSULE PO SCH (09:13)
[2018-12-02] MEDS: ASPIRIN 81 MG TAB.CHEW PO SCH (09:13)
[2018-12-02] MEDS: MESALAMINE 0.375 GM PO SCH ×2 (09:13→13:11)
[2018-12-02] MEDS: MULTIVIT,THER IRON,CA,FA & MIN 1 TABLET PO SCH (09:13)
[2018-12-02] MEDS: CYANOCOBALAMIN PO SCH ×2 (09:13→20:29)
[2018-12-02] MEDS: ASCORBIC ACID PO SCH ×2 (09:13→20:29)
[2018-12-02] MEDS: ALLOPURINOL 100 MG TABLET PO SCH (09:13)
[2018-12-02] MEDS: INTRINSIC FACTOR PO SCH ×2 (09:13→20:29)
[2018-12-02] MEDS: FERROUS FUMARATE PO SCH ×2 (09:13→20:29)
[2018-12-02] MEDS: FOLIC ACID 1 MG TABLET PO SCH (09:13)
[2018-12-02] MEDS: MAGNESIUM OXIDE 400 MG TABLET PO SCH (09:13)
[2018-12-02] MEDS: FOLIC ACID PO SCH ×2 (09:13→20:29)
[2018-12-02] MEDS: THIAMINE 100 MG TABLET PO SCH (09:13)
[2018-12-02] MEDS: FAMOTIDINE 20 MG TABLET PO SCH ×2 (09:13→20:29)
[2018-12-02] MEDS: FERROUS FUMARATE 324 MG PO SCH (09:14)
[2018-12-02] MEDS: DILTIAZEM 60 MG PO SCH (09:14)
[2018-12-02] MEDS ORDERED: PNEUMOCOCCAL 23-VAL P-SAC VAC 0.5 ML SYRINGE IM ONE (10:00)
[2018-12-02] MEDS: BUDESONIDE 0.5 MG/2 ML AMPUL.NEB NEB SCH ×2 (10:33→18:33)
[2018-12-02] MEDS: DILTIAZEM 30 MG TABLET PO SCH ×2 (12:56→17:34)
--- NOTE | 2018-12-02 14:06 | Ultrasound Report ---
CLINICAL INFORMATION: Pleural effusions. Congestive heart failure. TECHNIQUE: Carrillo scale and color flow Doppler spectral imaging COMPARISON: Chest x-ray dated 12/01/2018 FINDINGS: Trace left pleural fluid. Moderate right pleural effusion. No septations or significant internal echoes. Fluid collection appears simple. IMPRESSION: Moderate right pleural effusion Interpreted and Authenticated by: Adal Maria 12/02/18
[2018-12-02] MEDS: RIVAROXABAN 20 MG TABLET PO SCH (17:34)
[2018-12-02] MEDS: SIMVASTATIN 10 MG TABLET PO SCH (20:29)
[2018-12-02] MEDS: SENNOSIDES/DOCUSATE SODIUM 1 TAB TABLET PO SCH (20:29)
[2018-12-03] MEDS: IPRATROPIUM/ALBUTEROL 3 ML AMPUL.NEB NEB SCH ×6 (03:47→22:46)
[2018-12-03 06:24] LABS: ALT/SGPT 18 U/l (0-40); AST/SGOT 44 U/l (0-37); Albumin 2.4 gm/dL (3.2-5.2); Albumin/Globulin Ratio 0.6 (1.0-2.3); Alkaline Phosphatase 104 U/L (39-117); Bilirubin,Direct < 0.2 mg/dL (0.0-0.3); Bilirubin,Total 0.4 mg/dL (0.0-1.0); Blood Urea Nitrogen 15 mg/dl (8-23); Calcium 9.4 mg/dl (8.6-10.4); Carbon Dioxide 31 mmol/L (22-30); Chloride 90 mmol/L (96-108); Globulin 3.8 gm/dL (2.2-3.7); Glomerular Filtration Rate 71; Glucose 88 mg/dL (70-105); Lactate Dehydrogenase 265 U/L (94-250); Phosphorous 3.8 mg/dL (2.7-4.5); Triglycerides 63 mg/dl (<150); Uric Acid 3.1 mg/dL (2.5-8.0)
[2018-12-03] MEDS: BUDESONIDE 0.5 MG/2 ML AMPUL.NEB NEB SCH ×2 (07:08→18:54)
[2018-12-03] MEDS: LEVOTHYROXINE 50 MCG TABLET PO SCH (07:26)
[2018-12-03] MEDS: DILTIAZEM 30 MG TABLET PO SCH ×3 (07:26→16:28)
[2018-12-03] MEDS: FUROSEMIDE 40 MG/4 ML VIAL IV SCH (07:26)
[2018-12-03] MEDS: INSULIN LISPRO 1 UNIT/0.01 ML UNIT SQ SCH ×4 (07:36→20:55)
[2018-12-03] MEDS: 0.9 % SODIUM CHLORIDE 10 ML SYRINGE IV SCH ×3 (07:37→20:55)
[2018-12-03] MEDS: POTASSIUM CHLORIDE 20 MEQ PACKET PO SCH (07:38)
--- NOTE | 2018-12-03 08:27 | Internal Med Progress Note ---
Medical - PN: Subj Patient information: Note initiated : 12/03/18 at 8:20 am Service Date, if different from initiated Date: [] Patient: Dianne Benjamin a 78 y/o F admitted on 11/30/18 for shortness of breath, increased Co2 levels. Chief Complaint: [] Interval history: Ms. Benjamin is a 78 year old F with a complicated medical history including atrial flutter/pulmonary embolism currently on anticoagulation, COPD, CHF and diabetes. She follows up with [facility] at [place]. 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 She recently sustained hip fracture and underwent surgery at [place] by Dr. Severino. Patient was discharged to [facility] for postoperative recovery/rehab. She has been doing well until last few days she was noted by staff to be increasingly short of breath, weak and developed cough resulting in a gradual decline in functionality. She was recently diagnosed with pneumonia and completed a course of Levaquin 6 days ago. With above symptoms she was evaluated in the ER. Initial work-up was consistent with acute pulmonary edema/congestive heart failure on chest imaging. Urine showed pyuria. Patient was hypoxic requiring 2 L oxygen with blood gas 7.47/49/57. Patient was started on diuretics. Meraz's catheter placed with over 1200 cc urine output. Patient was initiated on noninvasive ventilation. Subsequently hospitalist service was consulted for admission in light of hypoxic respiratory failure UTI and deconditioning. She is accompanied with her daughter and son-in-law. They were able to answer most the question. Per daughter she has demonstrated a gradual cognitive decline over the last few months. During my evaluation patient is alert and respond to commands. She appears dyspneic and unable to talk in full sentences. She denies abdominal pain but endorses distention. She endorses to lower extremity swelling and weight gain. She denies chest pain headache fever or cough. She denies changes in medication or NSAID intake. She further denies known sick contacts. 12/01-patient kept overnight on noninvasive ventilation. Repeat ABG 7.5 on 30% FiO2. Diuresing well with over 3000 cc net negative. Improved pulmonary edema/hypoxia with PO2 improving from 57-93. Persistent hypercapnia likely CO2 retainer with Woodruff corrected PCO2 ~56. Check interval x-ray. Hemoglobin down to 9.1. White count down to 8.9. Potassium down to 2.9. Echocardiogram pending. No overnight telemetry events. Continue current treatment as above. 12/02 Doing much better. On nasal cannula. Denies dyspnea. Denies cough. Good urine output. Edema in legs much better. 12/03 Needs to feel better has occasional cough. Shortness of breath is significantly improved since admission. She was on room air while awake yesterday however at night she became hypoxic mildly and had to be put on oxygen. No new complaints other than constipation. Review of Systems: denies headache/fever/chills/nausea/vomiting/chest or abdominal pain/diarrhea. Otherwise see above. - Constitutional Vitals: Vital Signs Temp Pulse Resp BP Pulse Ox 98.1 F 90 17 124/76 94 12/03/18 07:01 12/03/18 07:09 12/03/18 07:54 12/03/18 07:01 12/03/18 07:54 Period Temp Pulse Resp BP Sys/Seals Pulse Ox Last 24 Hr 97.7 F-98.1 F 81-96 12-25 96-124/50-86 89-100 Intake and Output 12/02/18 12/03/18 12/03/18 21:59 05:59 13:59 Intake Total 2079 Output Total 1225 925 Balance 855 -925 Weight 98.702 kg Intake & Output: Intake & Output 12/02/18 12/03/18 12/03/18 21:59 05:59 13:59 Intake Total 2079 Output Total 1225 925 Balance 855 -925 Weight 98.702 kg Intake: Oral 2079 Output: Urine Catheter Amount 1225 925 Other: Meal Dinner Percent of Meal Consumed 100% Feeding Ability Independent Urine Appearance Clear Sediment Uretheral (Meraz) Sediment Sediment Urine Color Bright Yellow Bright Yellow Uretheral (Meraz) Dark Yellow Dark Yellow Exam: General: Alert, Awake, No acute Distress Eyes/N/T: EOMI, Head/Neck: neck supple, CV: Reg with occasional irregularity, 2/6 SM Pulm: bibase rales mild and managed breath sounds on the right, no wheezing Abd: soft, nontender, +BS x4 Ext: no clubbing/cyanosis, 1-2+ b/l LE edema improving Neuro: Alert, no focal deficits, moves all extremities, Skin: warm/dry Medical - PN: Obj Da - Labs CBC & Chem 7: 12/02/18 04:16 12/03/18 04:11 Labs: Abnormal Lab Results 12/03/18 12/02/18 12/02/18 04:11 08:46 04:16 WBC RBC Hgb Hct RDW Plt Count MPV Lymphocytes % Monocytes % (Manual) RBC Morphology Polychromasia Hypochromasia Poikilocytosis Spherocytes Ovalocytes Potassium Chloride 90 L 93 L Carbon Dioxide 31 H 35 H Glucose AST 44 H Alkaline Phosphatase Lactate Dehydrogenase 265 H NT-Pro-B Natriuret Pep 1034.0 H Albumin 2.4 L 2.8 L Globulin 3.8 H Albumin/Globulin Ratio 0.6 L 0.8 L Ur Leukocyte Esterase Urine WBC Hyaline Casts 12/02/18 12/01/18 12/01/18 04:16 03:13 03:13 WBC RBC 3.65 L 3.38 L Hgb 9.8 L 9.1 L Hct 30.4 L 28.0 L RDW 15.8 H 15.7 H Plt Count MPV 6.7 L 6.8 L Lymphocytes % 7 L 7 L Monocytes % (Manual) 13 H 16 H RBC Morphology Abnorm A Abnorm A Polychromasia Few A Hypochromasia 1+ A 1+ A Poikilocytosis Few A Spherocytes Occ A Ovalocytes Few A Potassium 2.9 L* Chloride 92 L Carbon Dioxide 32 H Glucose AST Alkaline Phosphatase Lactate Dehydrogenase NT-Pro-B Natriuret Pep Albumin 2.8 L Globulin Albumin/Globulin Ratio 0.8 L Ur Leukocyte Esterase Urine WBC Hyaline Casts 11/30/18 11/30/18 11/30/18 16:35 16:17 15:30 WBC RBC Hgb Hct RDW Plt Count MPV Lymphocytes % Monocytes % (Manual) RBC Morphology Polychromasia Hypochromasia Poikilocytosis Spherocytes Ovalocytes Potassium Chloride 91 L Carbon Dioxide 33 H Glucose 147 H AST Alkaline Phosphatase 122 H Lactate Dehydrogenase NT-Pro-B Natriuret Pep 1914.0 H Albumin Globulin Albumin/Globulin Ratio Ur Leukocyte Esterase 75 A Urine WBC 28 H Hyaline Casts 34 H 11/30/18 15:30 WBC 11.4 H RBC 3.76 L Hgb 10.0 L Hct 31.0 L RDW 16.2 H Plt Count 496 H MPV 6.6 L Lymphocytes % Monocytes % (Manual) RBC Morphology Polychromasia Hypochromasia Poikilocytosis Spherocytes Ovalocytes Potassium Chloride Carbon Dioxide Glucose AST Alkaline Phosphatase Lactate Dehydrogenase NT-Pro-B Natriuret Pep Albumin Globulin Albumin/Globulin Ratio Ur Leukocyte Esterase Urine WBC Hyaline Casts Meds: Medications Acetaminophen (Tylenol) 650 mg PO Q4-6HP PRN; Protocol PRN Reason: Per Pain Protocol/Fever > 101 Albuterol/Ipratropium (Duoneb) 3 ml NEB Q4HRT [facility] Last Admin: 12/03/18 07:08 Dose: 3 ml Documented by: Allopurinol (Zyloprim) 200 mg PO DAILY [facility] Last Admin: 12/02/18 09:13 Dose: 200 mg Documented by: Amiodarone HCl (Cordarone) 200 mg PO DAILY [facility] Last Admin: 12/02/18 09:12 Dose: 200 mg Documented by: Aspirin (Aspirin) 81 mg PO DAILY [facility] Last Admin: 12/02/18 09:13 Dose: 81 mg Documented by: Budesonide (Pulmicort) 0.5 mg NEB Q12 [facility] Last Admin: 12/03/18 07:08 Dose: 0.5 mg Documented by: Cyanocobalamin (Vitamin B-12) 1,000 mcg PO BID [facility] Stop: 12/05/18 09:01 Last Admin: 12/02/18 20:29 Dose: 1,000 mcg Documented by: Dextrose (Dextrose 50%) 0 ml IV UD PRN PRN Reason: Hypoglycemia Diagnostic Test (Pha) (Accu-Chek) 1 each FS ACHS [facility] Last Admin: 12/03/18 07:27 Dose: 1 each Documented by: Diltiazem HCl (Cardizem) 60 mg PO TIDAC [facility] Last Admin: 12/03/18 07:26 Dose: 60 mg Documented by: Docusate Sodium (Colace) 100 mg PO BID [facility] Last Admin: 12/02/18 20:28 Dose: 100 mg Documented by: Duloxetine HCl (Cymbalta) 60 mg PO DAILY [facility] Last Admin: 12/02/18 09:13 Dose: 60 mg Documented by: Famotidine (Pepcid) 20 mg PO BID [facility] Last Admin: 12/02/18 20:29 Dose: 20 mg Documented by: Folic Acid (Folic Acid) 1 mg PO DAILY [facility] Last Admin: 12/02/18 09:13 Dose: 1 mg Documented by: Furosemide (Lasix) 40 mg IV BIDD [facility] Last Admin: 12/03/18 07:26 Dose: 40 mg Documented by: Glucose (Insta-Glucose) 15 gm PO PRN PRN PRN Reason: Hypoglycemia Hydralazine HCl (Apresoline) 10 mg IV Q4-6HP PRN PRN Reason: Hypertension Acetaminophen (Ofirmev) 650 mg in 65 mls @ 130 mls/hr IV Q6HP PRN; Protocol PRN Reason: Per Pain Protocol/Fever > 101 Magnesium Sulfate (Magnesium Sulfate) 2 gm in 50 mls @ 50 mls/hr IV UD PRN PRN Reason: MG = or < 1.7 Last Infusion: 12/01/18 13:51 Dose: 0 mls/hr Documented by: Ceftriaxone Sodium 2 gm/ (Dextrose) 50 mls @ 100 mls/hr IV DAILY [facility]; Protocol Last Infusion: 12/02/18 09:50 Dose: Infused Documented by: Insulin Human Lispro (Humalog) 0 unit SQ ACHS [facility]; Protocol Last Admin: 12/03/18 07:36 Dose: Not Given Documented by: Iron Carb/Multivit/[place]/Folic Acid (Multivitamin W/Minerals) 1 tab PO DAILY [facility] Last Admin: 12/02/18 09:13 Dose: 1 tab Documented by: Levothyroxine Sodium (Synthroid) 50 mcg PO ACB [facility] Last Admin: 12/03/18 07:26 Dose: 50 mcg Documented by: Magnesium Oxide (Magnesium Oxide) 400 mg PO QDAY [facility] Last Admin: 12/02/18 09:13 Dose: 400 mg Documented by: Melatonin (Melatonin 3mg Tablet) 3 mg PO HSP PRN PRN Reason: Insomnia Nitroglycerin (Nitrostat) 0.4 mg SL Q5MINP PRN PRN Reason: Chest Pain Ondansetron HCl (Zofran) 4 mg IV Q4-6HP PRN; Protocol PRN Reason: Nausea And Vomiting Ferrous Fumarate [ Hemocyte] 324 Mg Tablet 1 dose PO DAILY [facility] Last Admin: 12/02/18 09:14 Dose: Not Given Documented by: Iron Fum/Vit C/B12- If/Fa [Tricon Capsule] 1 dose PO BID [facility] Last Admin: 12/02/18 20:29 Dose: Not Given Documented by: Mesalamine 0.375 Gm Extended Release Capsules 2 dose PO DAILY [facility] Last Admin: 12/02/18 13:11 Dose: Not Given Documented by: Potassium Chloride (Klor-Con) 40 meq PO DAILYP PRN PRN Reason: K+ < 3.5 Potassium Chloride (Klor-Con) 20 meq PO QAMCC [facility] Last Admin: 12/03/18 07:38 Dose: 20 meq Documented by: Rivaroxaban (Xarelto) 20 mg PO QPMCC [facility] Last Admin: 12/02/18 17:34 Dose: 20 mg Documented by: Senna/Docusate Sodium (Senna Plus Tablet) 1 tab PO HS [facility] Last Admin: 12/02/18 20:29 Dose: 1 tab Documented by: Simvastatin (Zocor) 10 mg PO QHS [facility] Last Admin: 12/02/18 20:29 Dose: 10 mg Documented by: Sitagliptin Phosphate (Januvia) 100 mg PO DAILY [facility] Last Admin: 12/02/18 09:12 Dose: 100 mg Documented by: Sodium Chloride (Saline Flush) 10 ml IV Q8 [facility] Last Admin: 12/03/18 07:37 Dose: 10 ml Documented by: Thiamine HCl (Vitamin B1) 100 mg PO DAILY [facility] Last Admin: 12/02/18 09:13 Dose: 100 mg Documented by: Tramadol HCl (Ultram) 50 mg PO Q6HP PRN PRN Reason: Pain Last Admin: 12/01/18 10:55 Dose: 50 mg Documented by: Medical - PN: A/P - Time Spent With Patient Total time spent is greater than 50% in coordination of care (as documented) at patient's floor/unit and/or counseling patient: - Narrative A/P Narrative: A: *Acute on chronic decompensated diastolic CHF w/Pulmonary edema: bumex recently decreased to once daily and then had hip fracture with repair and recently diagnosed with pneumonia, will increase Bumex back to twice daily for now and f/u with PCP/Cardio -clinically improving with aggressive diuresis -echo with good EF, b/l mod atrial dilation, pulm HTN *Acute pulmonary edema: 2/2 above, *Pleural effusion (moderate) secondary to congestive heart failure. still moderate size despite diuresis and requires O2 at night. 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 Kelley Plan -IV diuresis change to PO; bumex recently decreased to once daily and then had hip fracture with repair and recently diagnosed with pneumonia, will increase bumex back to twice daily for now and f/u with PCP/Cardio -Obtain records from [facility] cardiology office. f/u outpt with Dr. Kurtz in [place] -Potassium placement -thoracentesis -Antibiotic coverage and de-escalate based on cultures -continue ASA/Statin/Nitroglycerin -cont Amio/Dilt -basal prandial insulin/CC diet/sitagliptin -Continue PT OT/nutrition support/case management rehab consult -recommend sleep study outpt -ppx: rivaroxaban/cont home H2 full code
[2018-12-03] MEDS: cefTRIAXone 2 GM in DEXTROSE 5% IN WATER 50 ML IV SCH (08:55)
[2018-12-03] MEDS: MULTIVIT,THER IRON,CA,FA & MIN 1 TABLET PO SCH (08:55)
[2018-12-03] MEDS: sitaGLIPtin 100 MG TABLET PO SCH (08:55)
[2018-12-03] MEDS: ASPIRIN 81 MG TAB.CHEW PO SCH (08:55)
[2018-12-03] MEDS: CYANOCOBALAMIN (VITAMIN B-12) 500 MCG TABLET PO SCH ×2 (08:55→20:54)
[2018-12-03] MEDS: DULoxetine 30 MG CAPSULE PO SCH (08:55)
[2018-12-03] MEDS: ASCORBIC ACID PO SCH ×2 (08:56→20:32)
[2018-12-03] MEDS: FERROUS FUMARATE 324 MG PO SCH (08:56)
[2018-12-03] MEDS: CYANOCOBALAMIN PO SCH ×2 (08:56→20:32)
[2018-12-03] MEDS: AMIODARONE HCL 200 MG TABLET PO SCH (08:56)
[2018-12-03] MEDS: FOLIC ACID 1 MG TABLET PO SCH (08:56)
[2018-12-03] MEDS: THIAMINE 100 MG TABLET PO SCH (08:56)
[2018-12-03] MEDS: DOCUSATE SODIUM 100 MG CAPSULE PO SCH ×2 (08:56→20:54)
[2018-12-03] MEDS: MAGNESIUM OXIDE 400 MG TABLET PO SCH (08:56)
[2018-12-03] MEDS: FERROUS FUMARATE PO SCH ×2 (08:56→20:32)
[2018-12-03] MEDS: ALLOPURINOL 100 MG TABLET PO SCH (08:56)
[2018-12-03] MEDS: INTRINSIC FACTOR PO SCH ×2 (08:56→20:32)
[2018-12-03] MEDS: FAMOTIDINE 20 MG TABLET PO SCH ×2 (08:56→20:54)
[2018-12-03] MEDS: MESALAMINE 0.375 GM PO SCH (08:56)
[2018-12-03] MEDS: FOLIC ACID PO SCH ×2 (08:56→20:32)
[2018-12-03] MEDS ORDERED: POLYETHYLENE GLYCOL 3350 17 GM PACKET PO ONE (09:43)
[2018-12-03] MEDS ORDERED: SENNOSIDES 1 TABLET PO PRN (09:52)
[2018-12-03 10:12] LABS: INR 1.7 (0.9-1.1); Prothrombin Time 20.2 sec (11.9-14.5)
--- NOTE | 2018-12-03 10:17 | Discharge Summary ---
Medical - DS: Prov Patient information: Note initiated : 12/03/18 at 10:14 am Service Date, if different from initiated Date: [] Patient: Dianne Benjamin 78 y/o F admitted on 11/30/18 for shortness of breath, increased Co2 levels. Chief Complaint: [] Date of admission: 11/30/18 19:14 Discharge date: 12/04/18 Primary care physician: Adal Glez Consults: 11/30/18 Consult to Physician [CONS] Stat Comment: Consulting Provider: Angel Valencia Reason For Exam: Physician to Consult Medical - DS: Meds - Discharge Medications Prescriptions: Bumetanide 1 mg PO BID #10 tab Active and Home Medications: Home Medications cholecalciferol (vitamin D3) 1,000 unit capsule 1,000 unit PO QDAY 06/29/18 [History Confirmed 11/30/18 Last Taken Unknown] duloxetine 20 mg capsule,delayed release 60 mg PO QDAY cap 06/29/18 [History Confirmed 11/30/18 Last Taken Unknown] fluticasone propionate 50 mcg/actuation nasal spray,suspension 1 spray INTRANAS AL ONCE PRN g 06/29/18 [History Confirmed 11/30/18 Last Taken Unknown] magnesium oxide 400 mg (241.3 mg magnesium) tablet 400 mg PO QDAY tab 06/29/18 [History Confirmed 11/30/18 Last Taken Unknown] metformin 500 mg tablet 500 mg PO BID 06/29/18 [History Confirmed 11/30/18 Last Taken Unknown] nitroglycerin 0.4 mg sublingual tablet 0.4 mg SUBLINGUAL Q5-15M PRN 06/29/18 [History Confirmed 11/30/18 Last Taken Unknown] simvastatin 10 mg tablet 10 mg PO QHS 06/29/18 [History Confirmed 11/30/18 Last Taken Unknown] Allopurinol [Zyloprim] 200 mg PO DAILY 11/30/18 [History Confirmed 11/30/18 Last Taken Unknown] Amiodarone HCl [Cordarone] 200 mg PO DAILY 11/30/18 [History Confirmed 11/30/18 Last Taken Unknown] Aspirin [Adult Aspirin Regimen] 81 mg PO DAILY 11/30/18 [History Confirmed 11/30/18 Last Taken Unknown] Bumetanide 2 mg PO DAILY 11/30/18 [History Confirmed 11/30/18 Last Taken Unknown] Cyanocobalamin (Vitamin B-12) [Vitamin B-12] 500 mcg PO DAILY 11/30/18 [History Confirmed 11/30/18 Last Taken Unknown] Ferrous Fumarate [Hemocyte] 324 mg PO DAILY 11/30/18 [History Confirmed 11/30/18 Last Taken Unknown] Fluticasone/Salmeterol [Advair 250-50 Diskus] 1 puff INH BID 11/30/18 [History Confirmed 11/30/18 Last Taken Unknown] Folic Acid 1 mg PO DAILY 11/30/18 [History Confirmed 11/30/18 Last Taken Unknown] Ipratropium/Albuterol [Duoneb] 3 ml NEB Q6HP PRN 11/30/18 [History Confirmed 11/30/18 Last Taken Unknown] Iron Fum/Vit C/B12-If/FA [Tricon Capsule] 1 each PO BID 11/30/18 [History Confirmed 11/30/18 Last Taken Unknown] Levothyroxine [Synthroid] 50 mcg PO DAILY 11/30/18 [History Confirmed 11/30/18 Last Taken Unknown] Ondansetron [Zofran ODT] 4 mg SL ACHS 11/30/18 [History Confirmed 11/30/18 Last Taken Unknown] Polyethylene Glycol 3350 [Miralax] 17 gm PO DAILY 11/30/18 [History Confirmed 11/30/18 Last Taken Unknown] Potassium Chloride [Klor-Con] 20 meq PO DAILY 11/30/18 [History Confirmed 11/30/18 Last Taken Unknown] Rivaroxaban [Xarelto] 20 mg PO DAILY 11/30/18 [History Confirmed 11/30/18 Last Taken Unknown] traMADol HCL [Ultram] 50 mg PO Q6HP PRN 11/30/18 [History Confirmed 11/30/18 Last Taken Unknown] Diltiazem [Cardizem] 60 mg PO TID 12/02/18 [History Confirmed 12/02/18 Last Taken Unknown] Mesalamine [Apriso] 0.75 gm PO QAM 12/02/18 [History Confirmed 12/02/18 Last Taken Unknown] Medical - DS: Hosp Hospital Course: Ms. Benjamin is a 78 year old F with a complicated medical history including atrial flutter/pulmonary embolism currently on anticoagulation, COPD, CHF and diabetes. She follows up with [facility]ology office at [place]. 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 She recently sustained hip fracture and underwent surgery at [place] by Dr. Severino. Patient was discharged to [facility] for postoperative recovery/rehab. She has been doing well until last few days she was noted by staff to be increasingly short of breath, weak and developed cough resulting in a gradual decline in functionality. She was recently diagnosed with pneumonia and completed a course of Levaquin 6 days ago. With above symptoms she was evaluated in the ER. Initial work-up was consistent with acute pulmonary edema/congestive heart failure on chest imaging. Urine showed pyuria. Patient was hypoxic requiring 2 L oxygen with blood gas 7.47/49/57. Patient was started on diuretics. Meraz's catheter placed with over 1200 cc urine output. Patient was initiated on noninvasive ventilation. Subsequently hospitalist service was consulted for admission in light of hypoxic respiratory failure UTI and deconditioning. She is accompanied with her daughter and son-in-law. They were able to answer most the question. Per daughter she has demonstrated a gradual cognitive decline over the last few months. During my evaluation patient is alert and respond to commands. She appears dyspneic and unable to talk in full sentences. She denies abdominal pain but endorses distention. She endorses to lower extremity swelling and weight gain. She denies chest pain headache fever or cough. She denies changes in medication or NSAID intake. She further denies known sick contacts. 12/01-patient kept overnight on noninvasive ventilation. Repeat ABG 7.5 on 30% FiO2. Diuresing well with over 3000 cc net negative. Improved pulmonary edema/hypoxia with PO2 improving from 57-93. Persistent hypercapnia likely CO2 retainer with Woodruff corrected PCO2 ~56. Check interval x-ray. Hemoglobin down to 9.1. White count down to 8.9. Potassium down to 2.9. Echocardiogram pending. No overnight telemetry events. Continue current treatment as above. 12/02 Doing much better. On nasal cannula. Denies dyspnea. Denies cough. Good urine output. Edema in legs much better. 12/03 Needs to feel better has occasional cough. Shortness of breath is significantly improved since admission. She was on room air while awake yesterday however at night she became hypoxic mildly and had to be put on oxygen. No new complaints other than constipation. 12/04 At 400 cc of transudate removed from the right lung yesterday. Patient is breathing well on room air while awake. Patient has occasional cough but denies dyspnea. Overall feeling much improved. Stable for discharge. Discharge diagnosis: Acute on chronic diastolic heart failure with pulmonary edema Secondary discharge diagnosis: Moderate right pleural effusion acute respiratory failure with hypoxia and apnea UTI hypokalemia atrial flutter fib likely obstructive sleep apnea or obesity hypoventilation syndrome CAD hypothyroidism diabetes GERD ulcerative colitis - Time Spent with Patient Total time spent providing and/or coordinating discharge services: Greater than 30 minutes Medical - DS: Exam - Constitutional Vitals: Vital Signs Temp Pulse Resp BP Pulse Ox 12/03/18 07:56 18 91 12/03/18 07:54 17 94 12/03/18 07:09 90 20 12/03/18 07:01 98.1 F 20 124/76 94 12/03/18 06:37 17 95 12/03/18 06:01 18 114/63 94 12/03/18 05:01 17 108/68 96 12/03/18 04:01 16 107/70 100 12/03/18 03:01 97.7 F 17 119/70 95 12/03/18 02:01 25 H 110/59 12/03/18 01:01 19 107/62 93 12/03/18 00:01 15 109/50 92 12/02/18 23:01 98.1 F 22 111/50 92 12/02/18 22:35 96 H 18 12/02/18 22:01 18 102/66 93 12/02/18 21:01 19 117/66 95 12/02/18 20:38 17 104/55 94 12/02/18 18:35 86 18 12/02/18 18:01 22 12/02/18 17:05 12 115/74 89 L 12/02/18 16:25 19 95 12/02/18 16:02 20 111/63 95 12/02/18 15:09 19 99 12/02/18 15:05 89 18 12/02/18 15:01 16 107/82 98 12/02/18 14:17 20 90 12/02/18 14:08 98.1 F 18 100 12/02/18 14:01 23 H 113/62 100 12/02/18 13:22 21 113/56 100 12/02/18 13:01 21 112/62 100 12/02/18 12:29 23 H 90 12/02/18 12:03 18 107/62 92 12/02/18 11:05 19 93 12/02/18 11:01 23 H 109/54 94 12/02/18 10:54 81 21 Intake and Output 12/02/18 12/03/18 12/03/18 21:59 05:59 13:59 Intake Total 2079 Output Total 1225 925 Balance 855 -925 Intake: Oral 2079 Output: Urine Catheter Amount 1225 925 Other: Meal Dinner Percent of Meal Consumed 100% Feeding Ability Independent Urine Appearance Clear Sediment Uretheral (Meraz) Sediment Sediment Clear Urine Color Bright Yellow Bright Yellow Uretheral (Meraz) Dark Yellow Dark Yellow Bright Yellow Weight 98.702 kg Medical - DS: Data Labs on day of discharge: Labs from last 24 hours 12/03/18 12/03/18 12/03/18 09:00 09:00 04:11 Plt Count 508 H PT 20.2 H INR 1.7 H APTT 69 H Sodium 135 Potassium 4.1 Chloride 90 L Carbon Dioxide 31 H Anion Gap 14.0 BUN 15 Creatinine 0.8 GFR Calculation 71 Glucose 88 Uric Acid 3.1 Calcium 9.4 Phosphorus 3.8 Magnesium 2.1 Total Bilirubin 0.4 Direct Bilirubin < 0.2 GGT 22 AST 44 H ALT 18 Alkaline Phosphatase 104 Lactate Dehydrogenase 265 H Total Protein 6.2 Albumin 2.4 L Globulin 3.8 H Albumin/Globulin Ratio 0.6 L Triglycerides 63 Preliminary micro results at discharge 11/30/18 16:03 Blood Culture - Preliminary Blood 11/30/18 16:17 Blood Culture - Preliminary Blood Medical - DS: A/P - Patient/Caregiver Discharge Instructions Activity: as per physical therapy Diet: Cardiac, Consistent Carbohydrate Additional Instructions: Referral to see cardiology in 3 to 7 days-- Referral to see Dr. Wilfrid Kurtz in [place], [place]. was sent. They will contact [facility] to schedule an appointment. Prescriptions: Bumetanide 1 mg PO BID #10 tab Other Amb Orders: OT Discharge Order Facility: , Location: [facility] Physical Therapy at Discharge - General Facility: , Location: [facility] - Follow up Plan Follow up with: Wilfrid Kurtz MD [Referring] - Wilfrid Carmona MD [Physician] - Disposition: Xfer SNF Prognosis: Undetermined Rehab Potential: Fair I certify that the patient requires SNF services: Yes Overall status at discharge: patient is progressing back to baseline
--- NOTE | 2018-12-03 10:51 | XRay Report ---
INDICATION: Status post right thoracentesis TECHNIQUE: AP chest x-ray,portable semiupright COMPARISON: Previous chest x-ray dated 12/01/2018 FINDINGS:Status post right thoracentesis. No significant residual right pleural fluid. There is no right pneumothorax. There is cardiomegaly. Pulmonary vascularity is prominent. No definite pulmonary edema. IMPRESSION: 1. Status post right thoracentesis 2. No postthoracentesis pneumothorax Interpreted and Authenticated by: Adal Maria 12/03/18
--- NOTE | 2018-12-03 10:55 | Ultrasound Report ---
CLINICAL INFORMATION: Relatively small right pleural effusion TECHNIQUE: Informed consent was obtained. Right pleural fluid was localized with ultrasound. Routine ChloraPrep skin cleansing. 1% lidocaine injected subcutaneously and deep. A 6 Khmer safety centesis set was utilized. 400 mL yellow fluid removed. No pneumothorax demonstrated on post thoracentesis chest x-ray. IMPRESSION: 1. Ultrasound-guided right thoracentesis 2. 400 mL yellow fluid removed Interpreted and Authenticated by: Adal Maria 12/03/18
[2018-12-03 12:02] LABS: Glucose,Pleural Fluid 134 mg/dL; LDH,Pleural Fluid 114 U/L
[2018-12-03 13:15] LABS: Lymphocytes,Pleural Fluid 62 %; Macrophages,Pleural Fluid 6 %; Mesothelial,Pleural Fluid 4 %; Monocytes,Pleural Fluid 12 %; Neutrophils,Pleural Fluid 16 %
[2018-12-03 13:19] LABS: pH,Body Fluid 7.95
[2018-12-03 14:19] LABS: Appearance,Pleural Fluid CLEAR; Color,Pleural Fluid YELLOW; Nucleated Cells,Pleural Fld 1210 /cumm; RBC,Pleural Fluid < 50000 /cumm
[2018-12-03] MEDS: RIVAROXABAN 20 MG TABLET PO SCH (16:28)
[2018-12-03] MEDS: SIMVASTATIN 10 MG TABLET PO SCH (20:54)
[2018-12-04] MEDS: IPRATROPIUM/ALBUTEROL 3 ML AMPUL.NEB NEB SCH ×3 (03:54→11:04)
[2018-12-04] MEDS: 0.9 % SODIUM CHLORIDE 10 ML SYRINGE IV SCH (05:26)
[2018-12-04] MEDS: FERROUS FUMARATE 324 MG PO SCH (07:00)
[2018-12-04] MEDS: INTRINSIC FACTOR PO SCH (07:00)
[2018-12-04] MEDS: FERROUS FUMARATE PO SCH (07:00)
[2018-12-04] MEDS: CYANOCOBALAMIN PO SCH (07:00)
[2018-12-04] MEDS: ASCORBIC ACID PO SCH (07:00)
[2018-12-04] MEDS: FOLIC ACID PO SCH (07:00)
[2018-12-04] MEDS: BUDESONIDE 0.5 MG/2 ML AMPUL.NEB NEB SCH (07:06)
--- NOTE | 2018-12-04 07:12 | Internal Med Progress Note ---
Medical - PN: Subj Patient information: Note initiated : 12/04/18 at 7:10 am Service Date, if different from initiated Date: [] Patient: Dianne Benjamin a 78 y/o F admitted on 11/30/18 for shortness of breath, increased Co2 levels. Chief Complaint: [] Interval history: Ms. Benjamin is a 78 year old F with a complicated medical history including atrial flutter/pulmonary embolism currently on anticoagulation, COPD, CHF and diabetes. She follows up with [facility] at [place]. 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 She recently sustained hip fracture and underwent surgery at [place] by Dr. Severino. Patient was discharged to [facility] for postoperative recovery/rehab. She has been doing well until last few days she was noted by staff to be increasingly short of breath, weak and developed cough resulting in a gradual decline in functionality. She was recently diagnosed with pneumonia and completed a course of Levaquin 6 days ago. With above symptoms she was evaluated in the ER. Initial work-up was consistent with acute pulmonary edema/congestive heart failure on chest imaging. Urine showed pyuria. Patient was hypoxic requiring 2 L oxygen with blood gas 7.47/49/57. Patient was started on diuretics. Meraz's catheter placed with over 1200 cc urine output. Patient was initiated on noninvasive ventilation. Subsequently hospitalist service was consulted for admission in light of hypoxic respiratory failure UTI and deconditioning. She is accompanied with her daughter and son-in-law. They were able to answer most the question. Per daughter she has demonstrated a gradual cognitive decline over the last few months. During my evaluation patient is alert and respond to commands. She appears dyspneic and unable to talk in full sentences. She denies abdominal pain but endorses distention. She endorses to lower extremity swelling and weight gain. She denies chest pain headache fever or cough. She denies changes in medication or NSAID intake. She further denies known sick contacts. 12/01-patient kept overnight on noninvasive ventilation. Repeat ABG 7.5 on 30% FiO2. Diuresing well with over 3000 cc net negative. Improved pulmonary edema/hypoxia with PO2 improving from 57-93. Persistent hypercapnia likely CO2 retainer with Woodruff corrected PCO2 ~56. Check interval x-ray. Hemoglobin down to 9.1. White count down to 8.9. Potassium down to 2.9. Echocardiogram pending. No overnight telemetry events. Continue current treatment as above. 12/02 Doing much better. On nasal cannula. Denies dyspnea. Denies cough. Good urine output. Edema in legs much better. 12/03 Needs to feel better has occasional cough. Shortness of breath is significantly improved since admission. She was on room air while awake yesterday however at night she became hypoxic mildly and had to be put on oxygen. No new complaints other than constipation. 12/04 At 400 cc of transudate removed from the right lung yesterday. Patient is breathing well on room air while awake. Patient has occasional cough but denies dyspnea. Overall feeling much improved. Review of Systems: denies headache/fever/chills/nausea/vomiting/chest or abdominal pain/diarrhea. Otherwise see above. - Constitutional Vitals: Vital Signs Temp Pulse Resp BP Pulse Ox 97.8 F 92 H 19 134/67 96 12/04/18 04:01 12/03/18 22:45 12/04/18 07:03 12/04/18 07:01 12/04/18 07:03 Period Temp Pulse Resp BP Sys/Seals Pulse Ox Last 24 Hr 97.8 F-98.2 F 76-92 13-26 95-134/57-77 84-100 Intake and Output 12/03/18 12/04/18 12/04/18 21:59 05:59 13:59 Intake Total 1280 Output Total 0 650 Balance 1280 -650 Weight 98.792 kg Intake & Output: Intake & Output 12/03/18 12/04/18 12/04/18 21:59 05:59 13:59 Intake Total 1280 Output Total 0 650 Balance 1280 -650 Weight 98.792 kg Intake: Oral 1280 Output: Void Amount 0 650 Other: Meal Breakfast Percent of Meal Consumed 100% Feeding Ability Independent # Voids 100 # Bowel Movements 1 Exam: General: Alert, Awake, No acute Distress Eyes/N/T: EOMI, Head/Neck: neck supple, CV: Reg with occasional irregularity, 2/6 SM Pulm: improved bibase rales now minimal, better aeration on right today, no wheezing Abd: soft, nontender, +BS x4 Ext: no clubbing/cyanosis, 1+ b/l LE edema much improved Neuro: Alert, no focal deficits, moves all extremities, Skin: warm/dry Medical - PN: Obj Da - Labs CBC & Chem 7: 12/03/18 09:00 12/04/18 04:11 Labs: Abnormal Lab Results 12/03/18 12/03/18 12/03/18 09:00 09:00 04:11 RBC Hgb Hct RDW Plt Count 508 H MPV Lymphocytes % Monocytes % (Manual) RBC Morphology Polychromasia Hypochromasia Poikilocytosis Spherocytes Ovalocytes PT 20.2 H INR 1.7 H APTT 69 H Chloride 90 L Carbon Dioxide 31 H AST 44 H Lactate Dehydrogenase 265 H NT-Pro-B Natriuret Pep Albumin 2.4 L Globulin 3.8 H Albumin/Globulin Ratio 0.6 L 12/02/18 12/02/18 12/02/18 08:46 04:16 04:16 RBC 3.65 L Hgb 9.8 L Hct 30.4 L RDW 15.8 H Plt Count MPV 6.7 L Lymphocytes % 7 L Monocytes % (Manual) 13 H RBC Morphology Abnorm A Polychromasia Hypochromasia 1+ A Poikilocytosis Few A Spherocytes Occ A Ovalocytes Few A PT INR APTT Chloride 93 L Carbon Dioxide 35 H AST Lactate Dehydrogenase NT-Pro-B Natriuret Pep 1034.0 H Albumin 2.8 L Globulin Albumin/Globulin Ratio 0.8 L 12/01/18 03:13 RBC Hgb Hct RDW Plt Count MPV Lymphocytes % 7 L Monocytes % (Manual) 16 H RBC Morphology Abnorm A Polychromasia Few A Hypochromasia 1+ A Poikilocytosis Spherocytes Ovalocytes PT INR APTT Chloride Carbon Dioxide AST Lactate Dehydrogenase NT-Pro-B Natriuret Pep Albumin Globulin Albumin/Globulin Ratio Meds: Medications Acetaminophen (Tylenol) 650 mg PO Q4-6HP PRN; Protocol PRN Reason: Per Pain Protocol/Fever > 101 Albuterol/Ipratropium (Duoneb) 3 ml NEB Q4HRT [facility] Last Admin: 12/04/18 07:06 Dose: 3 ml Documented by: Allopurinol (Zyloprim) 200 mg PO DAILY [facility] Last Admin: 12/03/18 08:56 Dose: 200 mg Documented by: Amiodarone HCl (Cordarone) 200 mg PO DAILY [facility] Last Admin: 12/03/18 08:56 Dose: 200 mg Documented by: Aspirin (Aspirin) 81 mg PO DAILY [facility] Last Admin: 12/03/18 08:55 Dose: 81 mg Documented by: Budesonide (Pulmicort) 0.5 mg NEB Q12 [facility] Last Admin: 12/04/18 07:06 Dose: 0.5 mg Documented by: Bumetanide (Bumex) 1 mg PO DAILY [facility] Cyanocobalamin (Vitamin B-12) 1,000 mcg PO BID [facility] Stop: 12/05/18 09:01 Last Admin: 12/03/18 20:54 Dose: 1,000 mcg Documented by: Dextrose (Dextrose 50%) 0 ml IV UD PRN PRN Reason: Hypoglycemia Diagnostic Test (Pha) (Accu-Chek) 1 each FS ACHS [facility] Last Admin: 12/03/18 20:55 Dose: 1 each Documented by: Diltiazem HCl (Cardizem) 60 mg PO TIDAC [facility] Last Admin: 12/03/18 16:28 Dose: 60 mg Documented by: Docusate Sodium (Colace) 100 mg PO BID [facility] Last Admin: 12/03/18 20:54 Dose: 100 mg Documented by: Duloxetine HCl (Cymbalta) 60 mg PO DAILY [facility] Last Admin: 12/03/18 08:55 Dose: 60 mg Documented by: Famotidine (Pepcid) 20 mg PO BID [facility] Last Admin: 12/03/18 20:54 Dose: 20 mg Documented by: Folic Acid (Folic Acid) 1 mg PO DAILY [facility] Last Admin: 12/03/18 08:56 Dose: 1 mg Documented by: Glucose (Insta-Glucose) 15 gm PO PRN PRN PRN Reason: Hypoglycemia Hydralazine HCl (Apresoline) 10 mg IV Q4-6HP PRN PRN Reason: Hypertension Acetaminophen (Ofirmev) 650 mg in 65 mls @ 130 mls/hr IV Q6HP PRN; Protocol PRN Reason: Per Pain Protocol/Fever > 101 Magnesium Sulfate (Magnesium Sulfate) 2 gm in 50 mls @ 50 mls/hr IV UD PRN PRN Reason: MG = or < 1.7 Last Infusion: 12/01/18 13:51 Dose: 0 mls/hr Documented by: Ceftriaxone Sodium 2 gm/ (Dextrose) 50 mls @ 100 mls/hr IV DAILY [facility]; Protocol Last Infusion: 12/03/18 09:30 Dose: Infused Documented by: Insulin Human Lispro (Humalog) 0 unit SQ ACHS [facility]; Protocol Last Admin: 12/03/18 20:55 Dose: Not Given Documented by: Iron Carb/Multivit/Deaf Interpreter/Folic Acid (Multivitamin W/Minerals) 1 tab PO DAILY [facility] Last Admin: 12/03/18 08:55 Dose: 1 tab Documented by: Levothyroxine Sodium (Synthroid) 50 mcg PO ACB [facility] Last Admin: 12/03/18 07:26 Dose: 50 mcg Documented by: Magnesium Oxide (Magnesium Oxide) 400 mg PO QDAY [facility] Last Admin: 12/03/18 08:56 Dose: 400 mg Documented by: Melatonin (Melatonin 3mg Tablet) 3 mg PO HSP PRN PRN Reason: Insomnia Nitroglycerin (Nitrostat) 0.4 mg SL Q5MINP PRN PRN Reason: Chest Pain Ondansetron HCl (Zofran) 4 mg IV Q4-6HP PRN; Protocol PRN Reason: Nausea And Vomiting Ferrous Fumarate [ Hemocyte] 324 Mg Tablet 1 dose PO DAILY [facility] Last Admin: 12/04/18 07:00 Dose: Not Given Documented by: Iron Fum/Vit C/B12- If/Fa [Tricon Capsule] 1 dose PO BID [facility] Last Admin: 12/04/18 07:00 Dose: Not Given Documented by: Mesalamine 0.375 Gm Extended Release Capsules 2 dose PO DAILY [facility] Last Admin: 12/03/18 08:56 Dose: Not Given Documented by: Polyethylene Glycol (Miralax) 17 gm PO DAILY [facility] Potassium Chloride (Klor-Con) 40 meq PO DAILYP PRN PRN Reason: K+ < 3.5 Potassium Chloride (Klor-Con) 20 meq PO QAMCC [facility] Last Admin: 12/03/18 07:38 Dose: 20 meq Documented by: Rivaroxaban (Xarelto) 20 mg PO QPMCC [facility] Last Admin: 12/03/18 16:28 Dose: 20 mg Documented by: Senna (Senokot) 1 tab PO DAILYP PRN PRN Reason: Constipation Simvastatin (Zocor) 10 mg PO QHS [facility] Last Admin: 10/27/19 20:54 Dose: 10 mg Documented by: Sitagliptin Phosphate (Januvia) 100 mg PO DAILY [facility] Last Admin: 12/03/18 08:55 Dose: 100 mg Documented by: Sodium Chloride (Saline Flush) 10 ml IV Q8 [facility] Last Admin: 12/04/18 05:26 Dose: 10 ml Documented by: Thiamine HCl (Vitamin B1) 100 mg PO DAILY [facility] Last Admin: 12/03/18 08:56 Dose: 100 mg Documented by: Tramadol HCl (Ultram) 50 mg PO Q6HP PRN PRN Reason: Pain Last Admin: 12/01/18 10:55 Dose: 50 mg Documented by: Medical - PN: A/P - Time Spent With Patient Total time spent is greater than 50% in coordination of care (as documented) at patient's floor/unit and/or counseling patient: - Narrative A/P Narrative: A: *Acute on chronic decompensated diastolic CHF w/Pulmonary edema: bumex recently decreased to once daily and then had hip fracture with repair and recently diagnosed with pneumonia, will increase Bumex back to twice daily for now and f/u with PCP/Cardio -clinically improving with aggressive diuresis -echo with good EF, b/l mod atrial dilation, pulm HTN *Acute pulmonary edema: 2/2 above, *Pleural effusion (moderate) secondary to congestive heart failure. still moderate size despite diuresis and requires O2 at night. 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 Kelley Plan -restart home PO bumex; bumex recently decreased to once daily and then had hip fracture with repair and recently diagnosed with pneumonia, will increase bumex back to twice daily for now and f/u with PCP/Cardio -Obtain records from [facility] cardiology office. f/u outpt with Dr. Kurtz in [place] -Potassium placement prn -Antibiotic coverage and de-escalate based on cultures -continue ASA/Statin/Nitroglycerin -cont Amio/Dilt -basal prandial insulin/CC diet/sitagliptin -Continue PT OT/nutrition support/case management rehab consult -recommend sleep study outpt -ppx: rivaroxaban/cont home H2 full code
[2018-12-04 07:32] LABS: ALT/SGPT 20 U/l (0-40); AST/SGOT 39 U/l (0-37); Albumin 2.6 gm/dL (3.2-5.2); Albumin/Globulin Ratio 0.8 (1.0-2.3); Alkaline Phosphatase 97 U/L (39-117); Bilirubin,Direct < 0.2 mg/dL (0.0-0.3); Bilirubin,Total 0.3 mg/dL (0.0-1.0); Blood Urea Nitrogen 17 mg/dl (8-23); Calcium 9.2 mg/dl (8.6-10.4); Carbon Dioxide 33 mmol/L (22-30); Chloride 93 mmol/L (96-108); Globulin 3.3 gm/dL (2.2-3.7); Glomerular Filtration Rate 62; Glucose 90 mg/dL (70-105); Lactate Dehydrogenase 217 U/L (94-250); Phosphorous 3.6 mg/dL (2.7-4.5); Triglycerides 65 mg/dl (<150); Uric Acid 3.1 mg/dL (2.5-8.0)
[2018-12-04] MEDS: FAMOTIDINE 20 MG TABLET PO SCH (07:33)
[2018-12-04] MEDS: DILTIAZEM 30 MG TABLET PO SCH (07:33)
[2018-12-04] MEDS: LEVOTHYROXINE 50 MCG TABLET PO SCH (07:33)
[2018-12-04] MEDS: INSULIN LISPRO 1 UNIT/0.01 ML UNIT SQ SCH (07:35)
[2018-12-04] MEDS: cefTRIAXone 2 GM in DEXTROSE 5% IN WATER 50 ML IV SCH (09:00)
[2018-12-04] MEDS ORDERED: BUMETANIDE 1 MG TABLET PO SCH (09:00)
[2018-12-04] MEDS ORDERED: POLYETHYLENE GLYCOL 3350 17 GM PACKET PO SCH (09:00)
[2018-12-04] MEDS: DOCUSATE SODIUM 100 MG CAPSULE PO SCH (09:49)
[2018-12-04] MEDS: POTASSIUM CHLORIDE 20 MEQ PACKET PO SCH (09:49)
[2018-12-04] MEDS: ALLOPURINOL 100 MG TABLET PO SCH (09:49)
[2018-12-04] MEDS: AMIODARONE HCL 200 MG TABLET PO SCH (09:49)
[2018-12-04] MEDS: CYANOCOBALAMIN (VITAMIN B-12) 500 MCG TABLET PO SCH (09:49)
[2018-12-04] MEDS: ASPIRIN 81 MG TAB.CHEW PO SCH (09:50)
[2018-12-04] MEDS: FOLIC ACID 1 MG TABLET PO SCH (09:50)
[2018-12-04] MEDS: THIAMINE 100 MG TABLET PO SCH (09:50)
[2018-12-04] MEDS: MULTIVIT,THER IRON,CA,FA & MIN 1 TABLET PO SCH (09:50)
[2018-12-04] MEDS: DULoxetine 30 MG CAPSULE PO SCH (09:50)
[2018-12-04] MEDS: sitaGLIPtin 100 MG TABLET PO SCH (09:50)
[2018-12-04] MEDS: MAGNESIUM OXIDE 400 MG TABLET PO SCH (09:55)
[2018-12-04] MEDS: MESALAMINE 0.375 GM PO SCH (09:57)
== END 2018-12-04 12:15 | DRG 291 ==
LOC: ED 15:19 → ICU 19:14
PROVIDERS: ADMIT Internal Medicine; ATTEND Internal Medicine

== ENCOUNTER 2025-02-01 12:07 | Inpatient (IN) ==
[2025-02-01] MEDS: 0.9 % SODIUM CHLORIDE 1,000 ML IV ONE ×4 (12:47→19:40)
[2025-02-01 13:07] LABS: Bilirubin,Urine NEGATIVE (Negative); Color,Urine LT. YELLOW; Glucose,Urine (UA) NEGATIVE (Negative); Ketones,Urine NEGATIVE (Negative); Leukocyte Esterase,Urine NEGATIVE /uL (Negative); PH,Urine 6.5 (5.0-9.0); Protein,Urine NEGATIVE (Negative); Specific Gravity,Urine <= 1.005 (1.000-1.035); Urobilinogen,Urine 0.2 mg/dL
[2025-02-01 13:31] LABS: Thyroid Stimulating Hormone 1.53 uIU/mL (0.27-5.01)
[2025-02-01 13:32] LABS: Basophils # (Auto) 0.04 K/mcL (0.00-0.30); Basophils % (Auto) 0.4 % (0.0-2.0); Eosinophils # (Auto) 0.09 K/mcL (0.00-0.70); Eosinophils % (Auto) 0.9 % (0.0-7.0); Hematocrit 43.4 % (34.1-44.9); Hemoglobin 14.7 g/dL (11.2-15.7); Lymphocytes # (Auto) 1.69 K/mcL (1.50-4.80); Lymphocytes % (Auto) 16.9 % (15.5-49.0); Mean Corpuscular HGB Conc 33.9 g/dL (31.0-36.0); Monocytes # (Auto) 1.09 K/mcL (0.10-0.90); Monocytes % (Auto) 10.9 % (1.0-12.0); Neutrophils % (Auto) 70.5 % (38.0-78.0); Platelet Count 258 K/mcL (140-440); RBC 5.22 M/mcL (3.59-5.38); WBC 10.0 K/mcL (4.5-11.0)
[2025-02-01 13:44] LABS: ALT/SGPT 20 U/L (<40); AST/SGOT 33 U/L (<32); Albumin 4.1 gm/dL (3.2-5.2); Albumin/Globulin Ratio 1.2 (1.0-2.3); Alkaline Phosphatase 59 U/L (39-117); Anion Gap 16.0 (8.0-16.0); Bilirubin,Total 1.0 mg/dL (0.1-1.0); Blood Urea Nitrogen 69 mg/dL (8-23); Calcium 9.7 mg/dL (8.6-10.4); Carbon Dioxide 32 mmol/L (22-30); Chloride 82 mmol/L (96-108); Globulin 3.4 gm/dL (2.2-3.7); Glucose 116 mg/dL (70-105); Potassium 2.3 mmol/L (3.3-5.1); Sodium 130 mmol/L (133-145)
[2025-02-01 13:57] LABS: INR 1.4 (0.9-1.1); Prothrombin Time 18.9 sec (11.9-14.5)
[2025-02-01] MEDS: MAGNESIUM SULFATE 2 GM/50 ML BAG IV ONE (14:00)
[2025-02-01] MEDS: POTASSIUM CHLORIDE 80 MEQ in DEXTROSE 5% IN WATER 1,000 ML IV ONE (14:07)
[2025-02-01] MEDS: POTASSIUM CHLORIDE 10 MEQ/100 ML BAG IV SCH (14:24)
[2025-02-01] MEDS ORDERED: POTASSIUM CHLORIDE 40 MEQ in DEXTROSE 5% IN WATER 500 ML IV PRN (17:49)
[2025-02-01] MEDS ORDERED: METOCLOPRAMIDE 10 MG/2 ML VIAL IV PRN (17:49)
[2025-02-01] MEDS ORDERED: POTASSIUM CHLORIDE 20 MEQ TABLET PO PRN (17:49)
[2025-02-01] MEDS ORDERED: METOPROLOL TARTRATE 5 MG/5 ML VIAL IV PRN (17:49)
[2025-02-01] MEDS ORDERED: DEXTROSE 31 GM ORAL.SUSP PO PRN (17:49)
[2025-02-01] MEDS ORDERED: POLYETHYLENE GLYCOL 3350 17 GM PACKET PO PRN (17:49)
[2025-02-01] MEDS ORDERED: ACETAMINOPHEN 325 MG TABLET PO PRN (17:49)
[2025-02-01] MEDS ORDERED: ONDANSETRON 4 MG/2 ML VIAL IV PRN (17:49)
[2025-02-01] MEDS ORDERED: MAGNESIUM SULFATE 2 GM/50 ML BAG IV PRN (17:49)
[2025-02-01] MEDS ORDERED: IPRATROPIUM/ALBUTEROL 3 ML AMPUL.NEB NEB PRN (17:49)
[2025-02-01] MEDS ORDERED: DEXTROSE 50% 50 ML VIAL IV PRN (17:49)
[2025-02-01] MEDS ORDERED: SENNOSIDES 1 TABLET PO PRN (17:49)
[2025-02-01] MEDS: INSULIN LISPRO 1 UNIT/0.01 ML UNIT SQ SCH (18:35)
[2025-02-01] MEDS: DOCUSATE SODIUM 100 MG CAPSULE PO SCH (21:43)
[2025-02-02 06:22] LABS: ALT/SGPT 15 U/L (<40); AST/SGOT 32 U/L (<32); Albumin 3.4 gm/dL (3.2-5.2); Albumin/Globulin Ratio 1.2 (1.0-2.3); Alkaline Phosphatase 49 U/L (39-117); Anion Gap 12.0 (8.0-16.0); Bilirubin,Direct 0.3 mg/dL (<0.3); Bilirubin,Total 0.9 mg/dL (0.1-1.0); Blood Urea Nitrogen 43 mg/dL (8-23); Calcium 8.4 mg/dL (8.6-10.4); Carbon Dioxide 29 mmol/L (22-30); Chloride 96 mmol/L (96-108); Globulin 2.8 gm/dL (2.2-3.7); Glucose 91 mg/dL (70-105); Phosphorous 2.6 mg/dL (2.5-4.5); Potassium 3.0 mmol/L (3.3-5.1); Sodium 137 mmol/L (133-145); Triglycerides 92 mg/dL (<150); Uric Acid 12.0 mg/dL (2.5-8.0)
[2025-02-02] MEDS ORDERED: ENOXAPARIN 40 MG/0.4 ML SYRINGE SQ SCH (09:00)
[2025-02-02] MEDS: 0.9 % SODIUM CHLORIDE 1,000 ML IV ONE (09:06)
[2025-02-02] MEDS: CITALOPRAM 20 MG TABLET PO SCH (09:24)
[2025-02-02] MEDS: LEVOTHYROXINE 88 MCG TABLET PO SCH (09:24)
[2025-02-02] MEDS: POTASSIUM CHLORIDE 20 MEQ TABLET PO PRN (09:24)
[2025-02-02] MEDS: ATROPINE SULFATE 1 MG/10 ML SYRINGE IV ONE ×2 (14:53→15:20)
[2025-02-02] MEDS: ATROPINE SULFATE 1 MG/ML VIAL IV ONE ×2 (15:40)
[2025-02-02 17:27] VITALS: TEMP 97.5
[2025-02-02] MEDS ORDERED: RIVAROXABAN 20 MG TABLET PO SCH (17:30)
[2025-02-02 18:05] VITALS: O2SAT 92
== END 2025-02-02 17:55 | disposition short-term general hospital (02) | DRG 309 ==
LOC: ED 12:07 → ICU 17:00 → ED 17:08
PROVIDERS: ADMIT Internal Medicine; ATTEND Internal Medicine